=== PATIENT | female | born 2005 | race Caucasian/White ===

== ENCOUNTER 2024-03-29 13:12 | Outpatient (REF) | payer OTHER, SELFPAY ==
[2024-03-29 14:43] LABS: MANUAL DIFF FLAG NO
[2024-03-29 14:51] LABS: Basophils Absolute Auto 0.1 X10*3/uL (0.0-0.2); Basophils Percent Auto 1.1 % (0-2); Eosinophils Absolute Auto 0.1 X10*3/uL (0.0-0.4); Eosinophils Percent Auto 1.6 % (0-4); Hematocrit 38.9 % (37.0-47.0); Lymphocytes Absolute Auto 2.6 X10*3/uL (1.2-4.9); Lymphocytes Percent Auto 46.8 % (20-40); Mean Corpuscular HGB Conc 33.4 g/dl (31.0-35.0); Mean Corpuscular Hemoglobin 31.4 pg (27.0-33.0); Mean Platelet Volume 9.7 fL (9.4-12.3); Monocytes Absolute Auto 0.5 X10*3/uL (0.1-1.2); Monocytes Percent Auto 8.8 % (2-11); Neutrophils Absolute Auto 2.3 x10*3/uL (2.0-8.3); Neutrophils Percent Auto 41.7 % (45-73); Platelet Count 253 X10*3/uL (160-400); Red Blood Count 4.14 X10*6/uL (4.20-5.50); Red Cell Distribution Width 12.2 % (11.0-16.0); White Blood Count 5.5 X10*3/uL (4.8-10.8)
[2024-03-29 15:23] LABS: TSH reflex Free T4 0.67 uIU/mL (0.32-4.0)
[2024-03-30 22:29] LABS: Gliadin Deamidated IgA Ab <1.0 U/mL; Gliadin Deamidated IgG Ab <1.0 U/mL; Immunoglobulin A 209 mg/dL (47-310); Transglutaminase Ab IgG <1.0 U/mL; Transglutaminase IgA <1.0 U/mL
== END 2024-03-29 13:13 | disposition home or self-care (01) ==
LOC: HO.CHCLDS 13:12
PROVIDERS: Visit Provider General Practice
DX: R19.7 Diarrhea, unspecified (principal); Z87.59 Personal history of other complications of pregnancy, childbirth and the puerperium
CPT/HCPCS: 36415; 82784; 84443; 85025; 86258; 86364

== ENCOUNTER 2024-06-01 14:22 | Outpatient (REF) | payer OTHER, SELFPAY ==
[2024-06-02 01:33] LABS: Alanine Aminotransferase 15 U/L (0-31); Albumin Level 4.3 g/dL (3.5-5.0); Alkaline Phosphatase 59 U/L (39-117); Anion Gap 13 (12-20); Aspartate Amino Transferase 17 U/L (5-31); Bilirubin Direct 0.2 mg/dL (0.0-0.5); Bilirubin Total 0.4 mg/dL (0.0-1.0); Blood Urea Nitrogen 9 mg/dL (9-16); Calcium 9.5 mg/dL (8.4-10.2); Carbon Dioxide 24 mmol/L (22-29); Chloride 105 mmol/L (96-108); Estimated Glomerular Filt Rate > 60; Glucose Random 95 mg/dL (60-115); Potassium 3.9 mmol/L (3.3-5.1); Sodium 138 mmol/L (135-145); Total Protein 7.1 g/dL (6.5-8.0)
[2024-06-02 01:56] LABS: TSH reflex Free T4 0.62 uIU/mL (0.32-4.0)
== END 2024-06-01 14:23 | disposition home or self-care (01) ==
LOC: HO.HHCL 14:22
PROVIDERS: Visit Provider Family Medicine
DX: R14.0 Abdominal distension (gaseous) (principal); R10.9 Unspecified abdominal pain; R82.79 Other abnormal findings on microbiological examination of urine
CPT/HCPCS: 36415; 80048; 80076; 84443; 87086; 87088

== ENCOUNTER 2025-01-03 14:16 | Outpatient (REF) | payer OTHER, SELFPAY ==
--- NOTE | ~2025-01-03 | XR_ITS ---
EXAMINATION: XR ABDOMEN KUB CLINICAL INDICATION: sense of constipation, few BM weekly COMPARISON: None available. TECHNIQUE: AP view of the abdomen. FINDINGS: Gas throughout the intestine. No intestinal dilatation. Stool within the right hemicolon and likely transverse colon. No air-fluid levels. Osseous structures are intact. No metallic or radiopaque foreign body. No calcifications in the kidney shadows for the bladder region. XR/XR KUB IMPRESSION: No intestinal obstruction pattern. Electronically signed by: Pollo Brewer MD 01/03/2025 02:41 PM EST RP
--- OUTSIDE RECORDS SUMMARY | 2025-01-03 15:26 | XMS_ITS | Encounter Summary ---
Author Organization [facility] Address [address] [place] [address] Phone Care Team Providers Care Haulage Boss Name Role Phone Gladis Jones MD Primary Care Provider Encounter Details Date Type Department Care Team (Late st Contact Info) Description 06/30/2017 Conversion Encounter [facility] [address] [place] [address] Social History Tobacco Use Types Packs/Day Years Used Date Smoking Tobacco: Never Assessed Comments Unknown Sex and Gender Information Value Date Recorded Sex Assigned at Female 11/29/2019 10:25 AM EST Legal Sex Female 5:25 PM EDT Gender Identity Female 11/29/2019 10:25 AM EST Sexual Orientation Straight 11/29/2019 10 :25 AM EST documented as of this encounter Plan of Treatment Not on file documented as of this encounter Visit Diagnoses Not on filedocumented in this encounter Care Teams Haulage Boss Relationship Specialty Start Date End Date Gladis Jones MD [address] [place] [address] PCP - General Pediatrics 05/14/18 03/14/24 documented as of this encounter
--- OUTSIDE RECORDS SUMMARY | 2025-01-03 15:26 | XMS_ITS | Encounter Summary ---
Author Organization [facility] Address [address] [place] [address] Phone Care Team Providers Care Condenser Setter Name Role Phone Gladis Jones MD Primary Care Provider [phone] Encounter Details Date Type Department Care Team (Late st Contact Info) Description 02/11/[address] [facility] [place] Family Medicine [address] [place], [place] [phone] Family Medicine, Physician [address] [place] [address] Social History Tobacco Use Types Packs/Day Years [...] on filedocumented in this encounter Care Teams Condenser Setter Relationship Specialty Start Date End Date Gladis Jones MD [address] [place] [address] PCP - General Pediatrics 05/14/18 03/14/24 documented as of this encounter
--- OUTSIDE RECORDS SUMMARY | 2025-01-03 15:26 | XMS_ITS | Encounter Summary ---
Author Organization [facility] Address [address] [place] [address] Phone Care Team Providers Care Repairer Welding Systems And Equipment Name Role Phone Gladis Jones MD Primary Care Provider [phone] Reason for Visit * Reason Comments Med Refill Encounter Details Date Type Department Care Team (Late st Contact Info) Description 08/03/2020 Refill [facility] [place] [address] [place] [address] Gladis Jones MD [address] [place] [address] Encounter for initial prescription of contraceptive pills Social History Tobacco Use Types Packs/Day Years Used Date Smoking Tobacco: Never Smokeless Tobacco: Never Comments:vaped once Alcohol Use Standard Drinks/Week Comments Never 0 (1 standard drink = 0.6 oz pur e alcohol) Hunger/Food Answer Date Recorded No 12/02/2018 Stable Housing Answer Date Recorded No 11/17/2019 Transportation Concerns Answer Date Rec orded No 12/02/2018 Hazards in Home Answer Date Recorded No 12/02/2018 Financing Utilities Answer Date Recorde d No 12/02/2018 Safety at Home Answer Date Recorded No 12/02/2018 Outside Support Answer Date Recorded No 12/02/2018 Understanding Health Concerns Answer Da te Recorded No 12/02/2018 Financing Health Concerns Answer Date R ecorded No 12/02/2018 Missing School or Work Answer Date Shen rded No 12/02/2018 Comments No Sex and Gender Information Value Date Recorded Sex Assigned at Female 11/29/2019 10:25 AM EST Legal Sex Female 5:25 PM EDT Gender Identity Female 11/29/2019 10:25 AM EST Sexual Orientation Straight 11/29/2019 10 :25 AM EST documented as of this encounter Miscellaneous Notes * Telephone Encounter - Susana Beavers LPN - 09/03/2020 11:19 AM EDT Spoke to pharmacist Peggy- She is going to give the patient the same RX that was ordered in May.She is faxing the orders back to [facility] so MD can see the different in the medications. She doesn't need a new script * Telephone Encounter - Gladis Jones MD - 09/03/2020 11:08 AM EDT Discussed with Susana. As long as hormone is the same, it doesn't matter if the last week is nothing or Fe (unless family cares), but of note, Rx from my end was the same. Do I need to sign another Rx or are we all good? * Telephone Encounter - Susana Beavers LPN - 09/03/2020 9:08 AM EDT I called the pharmacist at [facility] She states what was sent over in May is not the same drug that was sent over the other day. In May patient was getting 28 pack. The ocp's sent over the other day were 21 day pack per pharmacist (Epic states 28 day pack). The pharmacist states the placebo pills are not included with this pack. I did confirm Norethindrone-ethinyl estradiol 1-20 Mg-MCG per tablet * Telephone Encounter - Gladis Jones MD - 09/02/2020 4:08 PM EDT I am confused by the question. The Rx written should be right- norethindrone- ethinyl estradiol 1-20MG-MCG per tablet Can you clarify what they are asking? This was prescribed by Dr. Romero yesterday. Thanks. * Telephone Encounter - Susana Beavers LPN - 09/02/2020 12:54 PM EDT [facility] is asking if Araceli ocp's need to have iron in them. Are they the same ones in May. The Pharmacist is asking. Please advise * Telephone Encounter - Gladis Jones MD - 08/08/2020 10:19 AM EDT I will write another Rx once she has f/u arranged, so please let me know. * Telephone Encounter - Susana Beavers LPN - 08/08/2020 9:27 AM EDT Spoke to parent to make VV appt Araceli needs to call [facility] back to set up her portal. Mom will have her call [facility] back. Per [facility] last refill was given to her on 08/03/2020. So she will need another refill in 30days. Your notes states tisha around 09/09/2020. * Telephone Encounter - Gladis Jones MD - 08/04/2020 12:32 PM EDT She should have had two refills, so should not need a new Rx for another month. She needs OCP f/u in a month (was to have it three months after initial OCP Rx), please call to have it scheduled and see if she needs a new Rx prior to that appt and let me know. Thanks. * Telephone Encounter - Susana Beavers LPN - 08/04/2020 12:06 PM EDT Pharm request for ocp's. Last pe 11/2019 last office visit 05/2020 documented in this encounter Plan of Treatment Not on file documented as of this encounter Visit Diagnoses Diagnosis Encounter for initial prescription of contraceptive pills documented in this encounter Care Teams Repairer Welding Systems And Equipment Relationship Specialty Start Date End Date Gladis Jones MD [address] [place] [address] PCP - General Pediatrics 05/14/18 03/14/24 documented as of this encounter
--- OUTSIDE RECORDS SUMMARY | 2025-01-03 15:26 | XMS_ITS | Encounter Summary ---
Author Organization [facility] Address [address] [place] [address] Phone Care Team Providers Care Bulb Weeder Name Role Phone Gladis Jones MD Primary Care Provider [phone] Encounter Details Date Type Department Care Team (Late st Contact Info) Description 12/31/2011 Documentation [facility] [place] Family Medicine [address] [place], [place] [phone] Family Medicine, Physician [address] [place] [address] Social History Tobacco Use Types Packs/Day Years [...] on filedocumented in this encounter Care Teams Bulb Weeder Relationship Specialty Start Date End Date Gladis Jones MD [address] [place] [address] PCP - General Pediatrics 05/14/18 03/14/24 documented as of this encounter
--- OUTSIDE RECORDS SUMMARY | 2025-01-03 15:26 | XMS_ITS | Encounter Summary ---
Author Organization [facility] Address [address] [place] [address] Phone Care Team Providers Care Small Equipment Operator Name Role Phone Gladis Jones MD Primary Care Provider [phone] Encounter Details Date Type Department Care Team (Late st Contact Info) Description 07/18/2010 Documentation [facility] [place] Family Medicine [address] [place], [place] [id number] Family Medicine, Physician [address] [place] [address] Social History Tobacco Use Types Packs/Day Years [...] on filedocumented in this encounter Care Teams Small Equipment Operator Relationship Specialty Start Date End Date Gladis Jones MD [address] [place] [address] PCP - General Pediatrics 05/14/18 03/14/24 documented as of this encounter
--- OUTSIDE RECORDS SUMMARY | 2025-01-03 15:26 | XMS_ITS | Encounter Summary ---
Author Organization [facility] Address [address] [place] [address] Phone Care Team Providers Care Ordnance Officer Name Role Phone Gladis Jones MD Primary Care Provider [phone] Encounter Details Date Type Department Care Team (Late st Contact Info) Description 02/16/2010 Documentation [facility] [address] [place], [place] [phone] Family Medicine, Physician [address] [place] [address] Social History Tobacco Use Types Packs/Day Years [...] on filedocumented in this encounter Care Teams Ordnance Officer Relationship Specialty Start Date End Date Gladis Jones MD [address] [place] [address] PCP - General Pediatrics 05/14/18 03/14/24 documented as of this encounter
--- OUTSIDE RECORDS SUMMARY | 2025-01-03 15:27 | XMS_ITS | Encounter Summary ---
Author Organization [employer] Address [address] [facility] [address] [place] [address] Care Team Providers Care Developmental Mathematics Professor Name Role Phone Yolanda Alberts MD Primary Care Provider [phone] Reason for Visit * Reason Comments Pre-visit Planning Unable to complete s creening Encounter Details Date Type Department Care Team ([facility] st Contact Info) Description 12/17/[address] [facility] [address] [place], [place] [phone] Yolanda Alberts MD [address] [place], [place] [phone] Pre-visit Planning (Unable to complete screening) Social History Tobacco Use Types Packs/Day Years Used Date Smoking Tobacco: Never Smokeless Tobacco: Current Comments:vape Alcohol Use Standard Drinks/Week Comments Yes 0 (1 standard drink = 0.6 oz pur e alcohol) Depression Answer Date Recorded Patient Health Questionnaire-9 Score 0 03/26/2024 Patient Health Questionnaire-9 Score 0 03/26/2024 Last PHQ-9: Questionnaire Data Not on file 0 03/26/2024 Housing Stability Answer Date Recorded What is your housing situation today? I have adenike mathew 03/26/[address] you li ve. Do you have problems with any of the following? None of the above 03/26/2024 Food Insecurity Answer Date Recorded Within the past 12 months, y ou worried that your food would run out before you got money to buy more: Never True 03/26/2024 Within the past 12 months,th e food you bought just didn't last and you didn't have enough money to get more: Never True Transportation Answer Date Recorded In the past 12 months, has l ack of transportation kept you from medical appts, meetings, work or from getting things needed for daily living? Yes, it has kept me from medical appointments or getting medications. 03/26/2024 Utilities Answer Date Recorded In the past 12 months, has t he electric, gas, oil or water company threatened to shut off services in your home? No 03/26/2024 Depression Answer Date Recorded Patient Health Questionnaire-2 Score 0 03/26/2024 Comments No Sex and Gender Information Value Date Recorded Sex Assigned at Female 02/13/2024 2:18 PM EDT Legal Sex Female 2:17 PM EDT Gender Identity Female 02/13/2024 2:31 PM EDT Sexual Orientation Choose not to disclose 2023 2:31 PM EDT documented as of this encounter Progress Notes * Sol Haas - 12/17/2024 8:59 AM EST CC Sol placed successful outbound call to patient for pre-visit planning. Patient name and confirmed. Patient confirms appointment date and time,unable to complete screening will complete in office. documented in this encounter Plan of Treatment Not on file documented as of this encounter Visit Diagnoses Not on filedocumented in this encounter Additional Health Concerns Assessment Noted Time PHQ-9 Depression Total Score: 0 03/26/20 24 1:08 PM EDT documented as of this encounter Care Teams Developmental Mathematics Professor Relationship Specialty Start Date End Date Yolanda Alberts MD [address] [place] [address] PCP - General Family Medicine 03/23/24 documented as of this encounter
--- OUTSIDE RECORDS SUMMARY | 2025-01-03 15:27 | XMS_ITS | Encounter Summary ---
Author Organization [facility] Address [address] [place] [address] Phone Care Team Providers Care Rn Ostomy Name Role Phone Gladis Jones MD Primary Care Provider Encounter Details Date Type Department Care Team (Late st Contact Info) Description 09/16/2014 Documentation [facility] [place] Family Medicine [address] [place], [place] [phone] Family Medicine, Physician [address] [place] [address] Social History Tobacco Use Types Packs/Day Years [...] on filedocumented in this encounter Care Teams Rn Ostomy Relationship Specialty Start Date End Date Gladis Jones MD [address] [place] [address] PCP - General Pediatrics 05/14/18 03/14/24 documented as of this encounter
--- OUTSIDE RECORDS SUMMARY | 2025-01-03 15:27 | XMS_ITS | Clinical Summary ---
Author Organization [facility] Address [address] [place] [id number] Phone Care Team Providers Care Return To Vendor Name Role Phone Unavailable Primary Care Provider Unavailabl e Allergies Active Allergy Reactions Criticality Noted Date Comments Amoxicillin Hives Medications SUMAtriptan (Imitrex) 25 MG tabletIndications :Migraine with aura and without status migrainosus, not intractable Take 1 tablet (25 mg total) by mouth once as needed for migraine (May repeat in 2 hours if symptoms persist) for up to 1 dose. May repeat dose once in 2 hours if no relief. Do not exceed 2 doses in 24 hours. 9 tablet 1 05/20/20 Active Additional Information Patient not taking.Reported on 08/31/2022 norethindrone 0.35 MG tabletIndications :Migraine with aura and without status migrainosus, not intractable,Encou nter for initial prescription of contraceptive pills Take 1 tablet (0.35 mg total) by mouth once daily at approximately the same time each day for 28 days. 28 tablet 2 09/08/20 22 Active Active Problems Problem Noted Date Diagnosed Date Lazy eye, left 04/08/2023 Overview (04/08/2023): 04/08/2023 (age 18yr): Symptom of 'wandering' eye could be related to history fo lazy eye. Will refer to ophtho. Assessment & Plan (04/08/2023 5:29 PM EDT): 04/08/2023 (age 18yr): Symptom of 'wandering' eye could be related to history fo lazy eye. Will refer to ophtho. Marijuana use 08/31/2022 Overview (08/31/2022): 09/04- using MJ qhs (mostly edibles) for appetite and migraines, got a medical marijauna card. Assessment & Plan (04/08/2023 5:27 PM EDT): 04/08/2023 (age 18yr): Had medical marijuana card by pt report Assessment & Plan (08/31/2022 9:19 AM EDT): I reviewed risks of MJ use, which she says she is aware of. PC Plus briefly discussed/offered, but she's not interested at this time. Migraine with aura 05/20/2022 Overview (08/31/2022): Estrogen-containing OCP stopped 05/20/22. 09/04- almost daily migraines, though not doing any of the preventative things we discussed. Using MJ nightly (has a medical MJ card). Recommended MigRelief again. Has sumatriptan Rx as well, though caused syncope once when she took two within 30 min. Assessment & Plan (04/08/2023 5:29 PM EDT): 04/08/2023 (age 18yr): ongoing migraine headaches, no change with MigRelief. Also having symptoms of presyncope and wander eye. Pt looks well today and minimal headache. Follow up with PCP, will address eye issue separately and refer to ophtho for this. . Assessment & Plan (08/31/2022 9:17 AM EDT): Almost daily migraines, though not doing any of the preventative things we discussed. Using MJ nightly (has a medical MJ card). Recommended MigRelief again. Has sumatriptan Rx as well, though caused syncope once when she took two within 30 min. Assessment & Plan (05/20/2022 3:23 PM EDT): Recommended MigRelief. Sumatriptan Rx done for abortive therapy. Will stop the combined OCP and start a progestin-only OCP as she wants to stick with OCPs (after suggesting an IUD). Rx done today. F/u 3 months (for migraine f/u, OCP re-check, and also to check weight). Fibrocystic breast changes 01/22/2022 Eating disorder 01/22/2022 Overview (08/31/2022): 02/02- has lost 20+lb since last spring. Per counselor at school, likely has anorexia nervosa, seeing her every other week. Likely related to wrestling. Referred to nutrition and eating d/o clinic, never went. 03/05- [facility] intake, recommended inpatient and she didn't want this. Plan to do a program with Carly Jefferson for an eating plan and feels she can do well with this. 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 Therapist ~11/03-04/04 Nikunj [facility] (school-based), or [email or web address]. Didn't find therapy helpful. Assessment & Plan (08/31/2022 9:15 AM EDT): Weight is up a little (2lb since May), which is good, and it sounds like she was doing really well on the program she was doing with Carly Jefferson. No longer in therapy, didn't find it helpful and not interested in doing this again (I recommended PC Plus given virtual might work well for her schedule, though she isn't interested in this). F/u 3 months with weight and vitals. Given she feels she was doing well with the program she was doing with Carly Jefferson, I am hopeful she will do this again once she is done with school. I also suggested a computer support technician that would be covered by insurance, but she isn't interested in this. Assessment & Plan (03/05/2022 12:46 PM EDT): Weight down a few pounds today, and orthostatics are borderline. Her weight loss now is likely confounded by having the Flu a couple weeks ago. I recommended to call [facility] about outpatient management, but she isn't interested at this time. She plans to see Associate Professor Of Engineering, Carly Jefferson, for an eating plan and feels she can do well with this. Continue with weekly therapy with therapist. F/u 1 month for weight check. Assessment & Plan (01/22/2022 4:40 PM EST): Discussed at length. Vitals reassuring (including nl orthostatic BPs). Labs ordered. Referred to nutrition and eating d/o clinic. F/u 1 month. History of COVID-19 10/21/2021 Overview (01/22/2022): 10/20/21 Bilateral breast cysts 01/09/2021 Overview (01/12/2022): Followed at Breast Clinic in [place], since 05/2020 - first mass right breast approx 11per mom: Had another breast ultrasound ~Nov 2020, very good experience at [facility], found another mass, likely cyst, plan to f/u q6mo x3yrs. Benign fibroadenoma Pt has seen multiple providers at the breast center all after the ultrasounds - Assessment & Plan (01/22/2022 4:01 PM EST): Has appt Tuesday with the breast clinic. Assessment & Plan (01/12/2022 10:28 PM EST): Right sided breast mass today. Does feel like normal, slightly denser breast tissue - 2-3 cm in size Discussed looking into having an identified breast specialist that Araceli could see regularly and when she has new findings on self exam. Referral to breast center done Dysmenorrhea 01/09/2021 Overview (08/31/2022): On OCPs (mom aware), not helping much. Functions fine. Taking Blisovi-Fe (ethinyl estradiol 20mcg + norethindrone) without significant SEs. 06/04- changed to norethindrone due to migraines with aura. Dysmenorrhea continued, but otherwise happy. Assessment & Plan (08/31/2022 9:17 AM EDT): Changed to norethindrone due to migraines with aura. Dysmenorrhea continued, but otherwise happy. Bilateral patellofemoral syndrome 03/09/2018 Overview (01/09/2021): Referred to sports medicine after conservative tx unsuccessful. Diag with bilat patellofemoral syn and core strength insuff. Referred for PT. Dr. Castle will follow up with her. 02/2018 Per patient had MRI. Also had Physical Therapy. Doing better now. 01/04 Assessment & Plan (01/09/2021 2:47 PM EST): Recently went back to Physical Therapy. Assessment & Plan (11/29/2019 10:32 AM EST): Recommended to f/u with Dr. Henderson/Sushila as needed (last seen 03/02) given persistent symptoms. Keratosis pilaris 02/15/2018 Overview (11/29/2019): Worse with sports. On face only. Has tried CeraVe SA, Salex 6% foam, Glytone KP Kit - had a lot pain/stinging with this. Urea 20% prescribed 11/29/19. Assessment & Plan (11/29/2019 11:16 AM EST): Trial of urea 20%. Can f/u with derm clinic if no better. Assessment & Plan (11/27/2018 10:36 AM EST): Recommend trying CeraVe SA again. Allergic rhinitis 08/18/2017 Overview (08/18/2017): Has seen Dr. Cruz/Lye Machine Operator. Has been on flonase and loratadine. Possible food allergies also. Assessment & Plan (11/29/2019 10:32 AM EST): Continue prn meds. Assessment & Plan (04/26/2018 8:59 AM EDT): Use shanika & sheila Family history of disorder of metabolism 015 Overview (08/31/2022): Mom eval. iin [facility] (Dr. 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 Suspect that MGM also has a mitochondrial disorder based on her sx. [place] for Araceli with Dr. Lewis[place] [facility] [place] % risk cannot be estimated and can't predict if Araceli would develop any sx (she has no sx presently). Since she is asymptomatic decision made to follow clinically for now and not test. Consider screening lab eval or genetic testing in the future (patient wants to go in to the and would like to wait to get tested until after this). F/U with genetics clinic prn per mom 12/02. 09/04- awaiting insurance approval for lab work by genetics. Assessment & Plan (08/31/2022 9:18 AM EDT): Awaiting insurance approval for lab work by genetics. Assessment & Plan (05/20/2022 3:28 PM EDT): Liat would now like to be tested. I reached out to Vonda Desouza NP, who is covering today for Dr. Lewis to find out if she wants to see Liat or if this is something I can/should order and she let me know they would like to see Araceli. They will reach out to schedule her, and I placed the referral and let family know. Assessment & Plan (11/29/2019 10:32 AM EST): Won't test her as she doesn't want to be tested given she wants to be in the . Mom's doctor aware of this and guiding possible testing in patient. Does want to be tested eventually. Assessment & Plan (11/27/2018 9:50 AM EST): Will f/u prn Adjustment disorder with anxious mood 02/09/2013 Overview (08/31/2022): Saw Romie Bruno. Sx of anxiety and some anger 2012. Was seeing Romie Bruno. Recent loss of grandfather. Doing well and no longer in therapy 2015. Having mood swings around menses 01/04, plan to switch OCP and did better on new OCP. Therapist- Nikunj, saw her weekly until ~04/04. Assessment & Plan (11/29/2019 10:31 AM EST): Doing well, no concerns. Resolved Problems Problem Noted Date Diagnosed Date Resolved Date ADHD (attention deficit hype ractivity disorder), inattentive type 09/20/2012 01/09/2021 Overview (11/27/2018): Diag with ADHD by [facility]. Trial of adderall xr started 2011 and definitely helps. Core eval showed average abilities and no need for IEP. Has accommodations for ADHD. Continues to do well on adderall xr 10 mg on school days only. No SE. Med checks are now q 6 months. 01/29. Off meds, thinks she's outgrown it. 12/02. Assessment & Plan (11/29/2019 10:26 AM EST): No concerns, off meds. Assessment & Plan (11/27/2018 9:57 AM EST): Doing well off meds. Assessment & Plan (11/11/2017 11:50 AM EST): You are doing well on your adderall xr 10 mg on school days only. You have not had any side effects and we will continue you on this medication and dose. New prescription done today. Immunizations Immunization Administration Dates Next Due COVID-19 Pfizer, bivalent, 12+ years 08/31/2022 COVID-19 Pfizer, nael-sucros e, 12+ years 01/22/2022 DTaP 5 03/01/2008, 6,2004,05/20,2004 HPV Vaccine 9 Valent 11/27/2018,08/18/2017 Hep A, ped/adol 09/23/2015,02/10/2015 Hep B, ped/adol 2004,2004,2004 Hib (HbOC) 05/31/2005 Hib (PRP-T) 2004,2004,2004 IPV 03/01/2008, 4,2004,03/09 Influenza, injectable, MDCK, preservative free, quadrivalent 11/05/2016 Influenza, injectable, quadrivalent 09/23/2015 Influenza, injectable, quadr ivalent, preservative free 08/31/2022,01/22/2022,09/30/2020,11/29,11/27/2018,08/18/2017 Influenza, injectable, trivalent 10/22/2009 Influenza, intranasal, quadrivalent 08/12/2014,1 12/18/2012 Influenza, intranasal, trivalent 09/20/2012,07/15 MMR 03/01/2008,01/13/2005 Meningococcal B Trumenba 01/22/2022 Meningococcal Conj (Menactra) MCV4P 06/09/2020,0 04/07/2016 PPD Test 07/20/2022 Pneumococcal Conjugate 05/31/2005,2003,2004,03/09 Tdap 04/07/2016 Varicella 03/01/2008,01/13/2005 Family History Medical History Relation Name Comments Substance abuse Father of over dose Diabetes Maternal Grandfather Heart disease (Premature) Maternal Grandfather Mitochondrial disorder Maternal Grandmother Mitochondrial disorder Mother Beata Lorenzana Alcoholism Paternal Grandmother Relation Name Status Comments Father Father: Asthma / ? ADHD Maternal Grandfather Materna l grandfather: Seizure disorder, Diabetes mellitus, Hepatitis C Maternal Grandmother Alive Materna l grandmother: Seizure disorder Mother Beata Lorenzana Alive Mother: Hypert hyroidism and IBS Other No family histo ry of *Thrombophilia, Family history of *Sudden /[place] under 55, No family history of Developmental dislocation of hip, Family history of ADD/ADHD, No family history of Obesity, Family history of Asthma, Family history of Migraines, Family history of Deafness, Family history of Strabismus, Family history of *Dental caries, Family history of Seizure disorder, Family history of Hyperlipidemia, No family history of Cancer, Family history of Diabetes mellitus, No family history of *CVA/Stroke, Family history of *Heart Disease Paternal Grandmother Social History Tobacco Use Types Packs/Day Years Used Date Smoking Tobacco: Never Smokeless Tobacco: Never Tobacco Cessation:Counseling Given: Yes Comments:vaped once Alcohol Use Standard Drinks/Week Comments Not Currently 0 (1 standard drink = 0.6 oz pure alcohol) rare, has tried it but doesn't enjoy it. Hunger/Food Answer Date Recorded In the last 12 months, did y ou or your family ever eat less than you felt you should because there wasn't enough money for food? No 01/22/2022 Stable Housing Answer Date Recorded Are you worried that in the next 2 months you may not have stable housing? No 01/22/2022 Transportation Concerns Answer Date Rec orded In the last 12 months, have you or your family ever had to go without healthcare because you didn't have a way to get there? No 01/22/2022 Hazards in Home Answer Date Recorded Think about the place you li ve. Do you have problems with any of the following? Pests (mice or roaches), mold, no/not working smoke detectors, water leaks, no window guards. No 2021 Financing Utilities Answer Date Recorde d In the last 12 months, has t he electric, gas, oil, or water company threatened to shut off your services in your home? No 01/22/2022 Safety at Home Answer Date Recorded Are you or your family worried about feeling saf e in your home? No 01/22/2022 Outside Support Answer Date Recorded Do you feel that you need mo re support from other people or programs to help you care for yourself or your family? No 01/22/2022 Understanding Health Concerns Answer Da te Recorded Do you need help understandi ng your or your child's healthcare needs (diagnosis, medications, plan, etc.)? No 01/22/2022 Financing Health Concerns Answer Date R ecorded In the last 12 months, was t here a time when your child needed to see a doctor or get medications or supplies but could not because of cost? No 01/22/2022 Missing School or Work Answer Date Shen rded Did you or your child miss s chool or work because of a health problem that could have been avoided? No 01/22/2022 Comments No Sex and Gender Information Value Date Recorded Sex Assigned at Female 11/29/2019 10:25 AM EST Legal Sex Female 5:25 PM EDT Gender Identity Female 11/29/2019 10:25 AM EST Sexual Orientation Straight 11/29/2019 10 :25 AM EST Last Filed Vital Signs Vital Sign Reading Time Taken Comments Blood Pressure 101/55 08/31/2022 8:39 AM EDT Pulse 60 08/31/2022 8:39 AM EDT Temperature 36.5 ??C (97.7 ??F) 04/08/2023 4:07 PM ED T Respiratory Rate - - Oxygen Saturation 100% 01/18/2013 12: 00 AM EST Inhaled Oxygen Concentration - - Weight 64.8 kg (142 lb 12.8 oz) 04/08/2023 4:07 PM EDT Height 170.2 cm (5' 7 ) 01/22/2022 3:19 PM EST Body Mass Index 22.37 01/22/2022 3:19 PM EST Plan of Treatment Health Maintenance Due Date Last Done Comments Men B Vaccine (2 of 2 - Trum enba SCDM 2-dose series) 07/25/2022 01/22/2022 Influenza Vaccines (#1) 2024 12/24/19 24, 08/31/2022, 01/22/2022, Additional history exists COVID-19 Vaccine ( - 2023-2 5 season) 2024 12/24/2023, 08/31/2022, 01/22/2022, Additional history exists DTaP,Tdap,and Td Vaccines (7 - Td or Tdap) 04/07/2026 04/07/2016, 03/01/2008, 11/17/2005, Additional history exists Hepatitis B Vaccines Completed 2004, 2004, 2004 HIB Vaccines Completed 05/31/2005, 06/15, 2004, Additional history exists Pneumococcal Vaccine Completed 05/31/2005, 2004, 2004, Additional history exists IPV Vaccines Completed 03/01/2008, 10/14, 2004, Additional history exists MMR Vaccines Completed 03/01/2008, 01/13/2005 Varicella Vaccines Completed 03/01/2008, 01/13/2005 Hepatitis A Vaccines Completed 09/23/2015, 02/11/20 15 HPV Vaccines Completed 11/27/2018, 08/18/2017 Meningococcal Vaccine Completed 06/09/2020, 016 Procedures * Due to [place] [employer] law, this organization might not be sharing sensitive test results. Procedure Name Priority Date/Time Associated Diagnosis Comments CHLAMYDIA AND GONORRHEA, AMPLIFIED Routine 03/05/2022 12:15 PM EDT Screening for chlamydial disease from Last 3 Months or Most Recently Relevant to Health Maintenance Results * Due to [place] [employer] law, this organization might not be sharing sensitive test results. * Chlamydia and Gonorrhoea, Amplified (Urine) (03/05/2022 12:15 PM EDT) Chlamydia Trachomatis, DNA Probe NEGATIVE (NEG) [facility] Comment: No Chlamydia Trachomatis RNA detected in this patient's sample ? (REFERENCE RANGE/NORMAL VALUE: NOT DETECTED) ? Note: This test uses director of workforce development- mediated amplification method to detect rRNA from C. Trachomatis URINE GC AMP PROBE NEGATIVE (NEG) [facility] Comment: No Neisseria Gonorrhoeae RNA detected in this patient's sample ? (REFERENCE RANGE/NORMAL VALUE: NOT DETECTED) ? NOTE: This test uses director of workforce development-mediated amplification method to detect rRNA from N.Gonorrhoeae. A negative result does not preclude infection. In the case of a negative urine result, testing of an endocervical(female) or urethral (male) specimen is recommended if there is high clinical suspicion of infection. Due to very high sensitivity of Nucleic Acid Amplification Test, false positive results may occur. Therefore, specimen handling is extremely important. In patients in whom the disease is unlikely, additional sample for testing should be considered after an initial positive result. The performance characteristics of this test have not been evaluated in children. The Aptima Combo2 assay is not intended for the evaluation of suspected sexual abuse or for other medico-legal indications. The ordering provider should assess if the patient had consensual sex without risk of sexual abuse. Consult the [facility] if needed. Contact phone number . Therapeutic failure or success cannot be determined with the Aptima Combo2 assay since nucleic acid may persist following appropriate antimicrobial therapy. The Centers for Disease Control and Prevention (CDC) recommends confirmatory retesting using culture or a different nucleic acid amplification test when positive results occur, if indicated. Testing performed or reported by [facility], a Service of [facility], [address] [place] [address] Dylan Sharma MD, Phlebotomy Specialist [facility]# [id number] Urine (Urine, Random (not clean void)) 03/05/2022 12:15 PM EDT 03/05/2022 10:14 PM EDT us Gladis Jones MD LAB MICROBIOLOGY - GENERAL OR DERABLES Final Result [facility] from Last 3 Months or Most Recently Relevant to Health Maintenance Insurance [facility] NON PCC [facility]
--- OUTSIDE RECORDS SUMMARY | 2025-01-03 15:27 | XMS_ITS | Encounter Summary ---
Author Organization [facility] Address [address] [place] [address] Phone Care Team Providers Care Personalized Living Manager Nurse Name Role Phone Gladis Jones MD Primary Care Provider [phone] Encounter Details Date Type Department Care Team (Late st Contact Info) Description 02/07/2015 [place] [facility] [place] [address] [place], [place] [id number] Family Medicine, Physician [address] [place] [address] Social History Tobacco Use Types Packs/Day Years [...] on filedocumented in this encounter Care Teams Personalized Living Manager Nurse Relationship Specialty Start Date End Date Gladis Jones MD [address] [place] [address] PCP - General Pediatrics 05/14/18 03/14/24 documented as of this encounter
--- OUTSIDE RECORDS SUMMARY | 2025-01-03 15:27 | XMS_ITS | Encounter Summary ---
Author Organization [employer] Address [address] [place] [address] Care Team Providers Care Hall Porter Name Role Phone Yolanda Alberts MD Primary Care Provider [phone] Encounter Details Date Type Department Care Team (Latest Contact Info) Description 12/28/2024 Travel Social History Tobacco Use Types Packs/Day Years Used Date Smoking Tobacco: Never Passive Smoke Exposure: Never Smokeless Tobacco: Current Comments:vape Alcohol Use Standard Drinks/Week Comments Yes 0 (1 standard drink = 0.6 oz pur e alcohol) Depression Answer Date Recorded Patient Health Questionnaire-9 Score 0 03/26/2024 Patient Health Questionnaire-9 Score 0 03/26/2024 Last PHQ-9: Questionnaire Data Not on file 0 03/26/2024 Housing Stability Answer Date Recorded What is your housing situation today? I have adenike priyanka 03/26/[address] you li [...] PM EDT documented as of this encounter Plan of Treatment Not on file documented as of this encounter Visit Diagnoses Not on filedocumented in this encounter Additional Health Concerns Assessment Noted Time PHQ-9 Depression Total Score: 0 03/26/20 1:08 PM EDT documented as of this encounter Care Teams Hall Porter Relationship Specialty Start Date End Date Yolanda Alberts MD [address] [place] [address] PCP - General Family Medicine 03/23/24 documented as of this encounter
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
--- OUTSIDE RECORDS SUMMARY | 2025-01-03 15:27 | XMS_ITS | Clinical Summary ---
Author Organization [email or web address] Address [address] [facility] 7t [place] [address] Care Team Providers Care Reproduction Order Processor Name Role Phone Yolanda Alberts MD Primary Care Provider [phone] Allergies Active Allergy Reactions Criticality Noted Date Comments Amoxicillin Hives 03/26/2024 Medications * This document contains information received from the source organization and may not represent a complete record from that organization. dicyclomine (Bentyl) 10 MG capsule Take 1 capsule (10 mg) by mouth 4 times daily. 120 capsule 2 04/05/20 24 025 Active simethicone (Mylicon) 80 MG tablet Take 1 tablet (80 mg) by mouth if needed in the morning, at noon, in the evening, and at bedtime (bloating). 120 tablet 2 06/01/20 24 Active Sennosides (Senna) 8.6 MG capsuleIndicati ons:Bloating,Ab dominal pain, unspecified abdominal location Take 1-2 tabs po at bedtime prn consitpation 60 capsule 3 06/01/20 24 Active fluticasone (Flonase) 50 MCG/ACT nasal spray Administer 1-2 sprays into each nostril Once per day. Shake gently. Before first use, prime pump. After use, clean tip and replace cap. 16 g 2 08/09/20 24 025 Active senna (Senokot) 8.6 MG tablet TAKE 1 TO 2 TABLETS BY MOUTH AT BEDTIME NEEDED FOR CONSTIPATION 07/17/20 24 025 Discontin ued(Thera py completed ) Gas Relief 80 MG chewable tablet Take 1 tablet (80 mg) by mouth if needed in the morning, at noon, in the evening, and at bedtime (bloating). 07/17/20 025 Discontin ued(Thera py completed ) Active Problems Problem Noted Date Diagnosed Date Left lower quadrant abdominal pain 06/01/2024 Abdominal pain 06/01/2024 Assessment & Plan (06/01/2024 2:46 PM EDT): LLQ abdominal pain with significant bloating since miscarriage 4 months ago. Celiac labs negative. Had some response with bentyl. Will trial simethicone with prn senna for constipation. Differential includes IBS vs other. Will check TSH and baseline labs given weight gain, A1c and BS normal in office. Discussed autonomic nervous system and somatic therapists. Discussed glutamine for bloating, understands not FDA approved but some impermeant in preliminary trials. Info given to mom with pt permission for SHELBIE Mckeon, dialectician who specializes in eating disorders. 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 iin [facility] (Dr. 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 Suspect that MGM also has a mitochondrial disorder based on her sx. Consult for Kamronbri with Dr. Lewis/ [place] [facility] [place] % risk cannot be estimated [...] with genetics clinic prn per mom 12/02. Assessment & Plan (03/28/2024 8:38 AM EDT): Potentially related to migraines Will obtain further history from mom Miscarriage within last 12 months 03/28/2024 Assessment & Plan (03/28/2024 8:39 AM EDT): Followed HCG to 17, no further follow-up needed Has not had return of full menses, to let me know if this does not happen within 3 months of completion of miscarriage Lazy eye, left 04/08/2023 Overview (03/23/2024): 04/08/2023 (age 18yr): Symptom of 'wandering' eye could be related to history fo lazy eye. Will refer to ophtho. Last Assessment & Plan: 04/08/2023 (age 18yr): Symptom of 'wandering' eye could be related to history fo lazy eye. Will refer to ophtho. Marijuana use 08/31/2022 Overview (03/28/2024): was using MJ at bedtime for appetite, back pain and migraines Has a medical [employer] card Assessment & Plan (03/28/2024 8:44 AM EDT): Having shaking, eyes rolling back, jittery symptoms with marijuana use after miscarriage Marijuana does not decrease seizure threshold and if anything should be protective against seizures Unsure what to attribute these symptoms around smoking Migraine with aura 05/20/2022 Overview (07/17/2024): Since age 15 Assessment & Plan (07/17/2024 11:26 AM EDT): Current daily headaches, though not particularly strong Not on preventative or abortive therapy Continue to taper from caffeine and nicotine, this may also be contributing to her headaches Eating disorder 01/22/2022 Overview (03/23/2024): 3/22- has lost 20+lb since last spring. 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 Therapist ~11/03-04/04 Nikunj Cotto [facility] (school-based), or [email or web address]. Didn't find therapy helpful. Last Assessment & Plan: Weight is up a little (2lb since [...] done with school. I also suggested a port crane operator that would be covered by insurance, but she isn't interested in this. Fibrocystic breast changes 01/22/2022 Bilateral breast cysts 01/09/2021 Overview (03/28/2024): Followed at [facility] in [place], since 05/2020 - first mass right breast approx 11per mom: Had another breast ultrasound ~Nov 2020, very good experience at [facility], found another mass, likely cyst, plan to f/u q6mo x3yrs. Benign fibroadenoma Pt has seen multiple providers at the breast center all after the ultrasounds Assessment & Plan (03/28/2024 8:37 AM EDT): Follow clinically for now, does not want another ultrasound Dysmenorrhea 01/09/2021 Overview (01/02/2025): Since early teenager Trialed Blisovi-Fe (ethinyl estradiol 20mcg + norethindrone) without significant SE, did not control symptoms 06/04- changed to norethindrone due to migraines with aura. Dysmenorrhea continued Assessment & Plan (01/02/2025 12:27 PM EST): This has been a long standing issue, also coupled with abdominal complaints of lower extremity peripheral neuropathy Will evaluate with lab w/u and pelvic US Bilateral patellofemoral syndrome 03/09/2018 Overview (03/23/2024): Referred to sports medicine after conservative tx unsuccessful. Diag with bilat patellofemoral syn and core strength insuff. Referred for PT. Dr. Castle will follow up with her. 02/2018 Per patient had MRI. Also had Physical Therapy. Doing better now. 01/04 Last Assessment & Plan: Recently went back to Physical Therapy. Allergic rhinitis 08/18/2017 Overview (03/23/2024): Has seen Dr. Cruz/Cistern Room Operator. Has been on flonase and loratadine. Possible food allergies also. Last Assessment & Plan: Continue prn meds. Assessment & Plan (08/09/2024 4:48 PM EDT): Continue loratadine. Add fluticasone nasal. Family history of disorder of metabolism 015 Adjustment disorder with anxious mood 02/09/2013 Assessment & Plan (04/02/2024 9:11 AM EDT): PLAN: (check all that apply) Behavioral Health Integration Plan External OP therapy referral Patient Self Plan Patient to utilize skills provided in intervention , Patient to reach out to [facility] team as needed, and Patient to engage in OP therapy Assessment & Plan (03/28/2024 8:36 AM EDT): consulted today for connection to OP therapy services Encounters Date Type Department Care Team Description 12/28/2024 4:00 PM EST Office Visit [facility] [address] [place] [id number] Yolanda Alberts MD Chronic idiopathic constipation (Primary Dx); Dysmenorrhea; Dietary counseling; Exercise counseling; Overweight; 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[facility]/HCC) 12/28/2024 Travel 12/17/2024 Patient Outreach [facility] [address] [place] [address] Yolanda Alberts MD Pre-visit Planning (Unable to complete screening) 11/27/2024 Telephone [facility] [address] [place] [address] Priscila Watt [place] recall from Last 3 Months Immunizations Name Administration Dates Next Due DTaP, 5 pertussis antigens 03/01/2008,,2004,05/20,2004 HPV 9-Valent 11/27/2018,08/18/2017 Hep A, ped/adol, 2 dose 09/23/2015,02/10/2015 Hep B, Adolescent or Pediatric 2004,2003,2004 Hib (HbOC) 05/31/2005 Hib (PRP-T) 2004,2004,2004 IPV 03/01/2008, 4,2004,03/09 Influenza Injectable Quadriv alant Preservative Free IIV4 MDCK 11/05/2016 Influenza injectable quadriv alent IIV4 with preservative 09/23/2015 Influenza injectable quadriv alent preservative free 08/31/2022,01/22/2022,09/30/2020,11/29,11/27/2018,08/18/2017 Influenza live intranasal qu adrivalent LIAV4 08/12/2014,10/17/2013 Influenza, IIV3, injectable 10/22/2009 Influenza, live, intranasal 09/20/2012, 1 MMR 03/01/2008,01/13/2005 Meningococcal B, Recombinant 01/22/2022 Meningococcal MCV4P ACYW-135 06/09/2020,04/07/20 16 PPD Test 07/20/2022 Pneumococcal Conjugate PCV 7 05/31/2005, 2004,2004,03/09 Tdap 04/07/2016 Varicella 03/01/2008,01/13/2005 Family History Medical History Relation Name Comments Mitochondrial disorder Father Relation Name Status Comments Father Alive Social History Tobacco Use Types Packs/Day Years [...] is your housing situation today? I have adenikemell mathew 03/26/[address] you [...] not to disclose 2023 2:31 PM EDT Last Filed Vital Signs Vital Sign Reading Time Taken Comments Blood Pressure 132/79 12/28/2024 4:16 PM EST Pulse 73 12/28/2024 4:16 PM EST Temperature 35.9 ??C (96.6 ??F) 12/28/2024 4:16 PM ES T Respiratory Rate 18 12/28/2024 4:16 PM EST Oxygen Saturation 97% 08/09/2024 11: 45 AM EDT Inhaled Oxygen Concentration - - Weight 87.9 kg (193 lb 12.8 oz) 12/28/2024 4:16 PM EST Height 170.2 cm (5' 7 ) 12/28/2024 4:16 PM EST Body Mass Index 30.35 12/28/2024 4:16 PM EST Plan of Treatment Health Maintenance Due Date Last Done Comments Chlamydia and Gonorrhea Screening 2004 HIV Screening 2004 Lipid Panel 2004 Hepatitis C Screening 2022 COVID-19 Vaccine ( season) 2024 08/31/2022, 01/22/2022 Influenza Vaccine (#1) 2024 , 01/22/2022, 09/30/2020, Additional history exists Alcohol/Substance Use Screening 03/26/2025 03/26/2024 Depression Screening 03/26/2025 03/26/2024, 03/26/20 24 SDOH Screening 03/26/2025 03/26/2024 Tobacco Screening 12/28/2025 12/28/2024 Family Planning (PISQ) 01/02/2026 01/02/2025 DTaP/Tdap/Td Vaccines (7 - Td or Tdap) 04/07/2026 04/07/2016, 03/01/2008, 11/17/2005, Additional history exists Zoster Vaccines (1 of 2) 2054 RSV Patients and Patients Aged 60 years or older (1 - 1-dose 75+ series) 2079 Hepatitis B Vaccines Completed 2004, 2004, 2004 HIB Vaccines Completed 05/31/2005, 06/15, 2004, Additional history exists Pneumococcal Vaccine: Pediatrics (0 to 5 Years) and At-Risk Patients (6 to 49) Years) Aged Out 05/31/2005, 2004, 2004, Additional history exists No longer eligible based on patient's age to complete this topic IPV Vaccines Completed 03/01/2008, 10/14, 2004, Additional history exists Hepatitis A Vaccines Completed 09/23/2015, 02/11/20 15 HPV Vaccines Completed 11/27/2018, 08/18/2017 Meningococcal Vaccine Completed 06/09/2020, 016 RSV under 20 months Aged Out No longe r eligible based on patient's age to complete this topic Rotavirus Vaccines Aged Out No longer eligible based on patient's age to complete this topic Procedures Procedure Name Priority Date/Time Associated Diagnosis Comments XR KUB AND UPRIGHT 2 VIEWS Routine 01/03/2025 2:17 PM EST Chronic idiopathic constipation from Last 3 Months Results * XR KUB and Upright 2 Views (01/03/2025 2:17 PM EST) Anatomical Region Laterality Modality Radiographic Babita ging 01/03/2025 2:17 PM EST Narrative 01/03/2025 2:45 PM EST ?[facility] ?[address] ?[place] [address] ?XRay Report ? Signed ? Patient: Brayden,Araceli ?MR#: [id number] ?? 08 ? : 2005 ?Acct:[id number] ? Age/Sex: 19 / F ?ADM Date: 02/20/25 ? Loc: HO.HHCX ? Attending Dr: Yolanda Alberts MD ? Ordering Physician: Yolanda Alberts ?? Date of Service: 01/03/25 ?? Procedure(s): XR KUB ?? Accession Number(s): [id number] ? cc: Yolanda Alberts ? EXAMINATION: ?? [...] DD/ 1417 ? TD/TT: 01/03/25 1430 ? Ward Maid: ? Procedure Note Dondaynaruiasterter, Image - 01/03/2025 [place] [address] XRay Report Signed Patient: Chay Owen#: [id number] [birth year] : 2005Acct:[id number] Age/Sex: Date: [birth year]25 Loc: HO.HHCX Attending Dr: Yolanda Alberts MD Ordering Physician: Yolanda Alberts Date of Service: 01/03/25 Procedure(s): XR KUB Accession Number(s): [id number] cc: Yolanda Alberts EXAMINATION: XR ABDOMEN KUB [...] 01/03/25 1441 DD/ 1417 TD/TT: 01/03/25 1430 Ward Maid: Yolanda Alberts MD IMG XR PROCEDURES Final Result from Last 3 Months Insurance , [address] [place] [address] Care Teams Reproduction Order Processor Relationship Specialty Start Date End Date Yolanda Alberts MD [address] [place] [address] PCP - General Family Medicine 03/23/24
== END 2025-01-03 14:17 | disposition home or self-care (01) ==
LOC: HO.HHCX 14:16
PROVIDERS: Visit Provider General Practice
DX: K59.04 Chronic idiopathic constipation (principal)
CPT/HCPCS: 74018

== ENCOUNTER → 2025-01-03 14:17 | Outpatient (BNV) | payer OTHER, SELFPAY | PROVIDERS: Visit Provider Radiology Diagnostic Radiology | DX: K59.00 Constipation, unspecified (principal) | CPT/HCPCS: 74018 ==

== ENCOUNTER 2025-01-03 14:37 | Outpatient (REF) | payer OTHER, SELFPAY ==
--- OUTSIDE RECORDS SUMMARY | 2025-01-03 15:47 | XMS_ITS | Encounter Summary ---
Author Organization [employer] Address [address] [facility] 7 [place] [address] Care Team Providers Care Hotel Office Manager Name Role Phone Yolanda Alberts MD Primary Care Provider [phone] Encounter Details Date Type Department Care Team [...] documented as of this encounter Care Teams Hotel Office Manager Relationship Specialty Start Date End Date Yolanda Alberts MD [address] [place] [address] PCP - General Family Medicine 03/23/24 documented as of this encounter
--- OUTSIDE RECORDS SUMMARY | 2025-01-03 15:47 | XMS_ITS | Clinical Summary ---
Author Organization [employer] Address [address] [facility] 7t [place] [address] Care Team Providers Care Hospital Account Manager Name Role Phone Yolanda Alberts MD Primary Care Provider [phone] Allergies Active Allergy Reactions Criticality Noted Date [...] disease 03/28/2024 Overview (03/28/2024): Mom eval. iin [facility] (Dr. 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 Suspect that MGM also has a mitochondrial disorder based on her sx. Consult for Kamronbri with Dr. 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 Therapist ~11/03-04/04 Nikunj Cotto [facility] (school-based), or [email or web address]. Didn't find therapy helpful. Last Assessment & [...] done with school. I also suggested a dental detail representative that would be covered by insurance, but she isn't interested in this. Fibrocystic breast changes 01/22/2022 Bilateral breast cysts 01/09/2021 Overview (03/28/2024): Followed at [facility] in [place], since 05/2020 - first mass right breast approx 11per mom: Had another breast ultrasound ~Nov 2020, very good experience at [facility], found another mass, likely [...] rhinitis 08/18/2017 Overview (03/23/2024): Has seen Dr. Cruz/Advertising Sales Assistant. Has been on flonase and loratadine. Possible [...] intervention , Patient to reach out to [facility] team as needed, and Patient to engage in OP therapy Assessment & Plan (03/28/2024 8:36 AM EDT): consulted today for connection to OP therapy services Encounters Date Type Department Care Team Description 12/28/2024 4:00 PM EST Office Visit [facility] MEDICINE [address] [place] [phone] Yolanda Alberts MD Chronic idiopathic constipation (Primary Dx); Dysmenorrhea; Dietary counseling; Exercise counseling; Overweight; 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[facility]/HCC) 12/28/2024 Travel 12/17/2024 Patient Outreach [facility] [address] [place] [address] Yolanda Alberts MD Pre-visit Planning (Unable to complete screening) 11/27/2024 Telephone [facility] [address] [place] [address] Priscila Watt [place] recall from Last 3 [...] PM EST Narrative 01/03/2025 2:45 PM EST ?[facility] ?[address] ?[place] [address] ?XRay Report ? Signed ? Patient: Brayden,Araceli ?MR#: [id number] ?? 08 ? : 2005 ?Acct:[id number] ? Age/Sex: 19 / F ?ADM Date: 02/20/25 ? Loc: HO.HHCX ? Attending Dr: Yolanda Alberts MD ? Ordering Physician: Yolanda Alberts ?? Date of Service: 01/03/25 ?? Procedure(s): XR KUB ?? Accession Number(s): [id number] ? cc: Yolanda Alberts ? EXAMINATION: ?? [...] DD/ 1417 ? TD/TT: 01/03/25 1430 ? Site Manager: ? Procedure Note Dondaynaruiasterter, Image - 01/03/2025 [place] [address] XRay Report Signed Patient: Chay Owen#: [id number] 08 : 2005Acct:[id number] Age/Sex: Date: [birth year] Loc: HO.HHCX Attending Dr: Yolanda Alberts MD Ordering Physician: Yolanda Alberts Date of Service: 01/03/25 Procedure(s): XR KUB Accession Number(s): [id number] cc: Yolanda Alberts EXAMINATION: XR ABDOMEN KUB [...] 01/03/25 1441 DD/ 1417 TD/TT: 01/03/25 1430 Site Manager: Yolanda Alberts MD IMG XR PROCEDURES Final Result from Last 3 Months Insurance , [address] [place] [address] Care Teams Hospital Account Manager Relationship Specialty Start Date End Date Yolanda Alberts MD [address] [place] [address] PCP - General Family Medicine 03/23/24
--- OUTSIDE RECORDS SUMMARY | 2025-01-03 15:47 | XMS_ITS | Encounter Summary ---
Author Organization [facility] Address [address] [place] [address] Phone Care Team Providers Care Lay Out Former Name Role Phone Gladis Jones MD Primary Care Provider [phone] Reason for Visit * Reason Comments Med Refill Encounter Details Date Type Department Care Team (Late st Contact Info) Description 08/03/2020 Refill [facility] [address] [place] [address] Gladis Jones MD [address] [place] [address] Encounter for initial prescription of contraceptive pills [...] May.She is faxing the orders back to [facility] so MD can see the different [...] AM EDT I called the pharmacist at [facility] She states what was sent over [...] around 09/09/2020. * Telephone Encounter - Gladis Jonse MD - 08/04/2020 12:32 PM EDT She [...] pills documented in this encounter Care Teams Lay Out Former Relationship Specialty Start Date End Date Gladis Jones MD [address] [place] [phone] PCP - General Pediatrics 05/14/18 03/14/24 documented as of this encounter
--- OUTSIDE RECORDS SUMMARY | 2025-01-03 15:47 | XMS_ITS | Encounter Summary ---
Author Organization [facility] Address [address] [place] [address] Phone Care Team Providers Care Digital Print Operator Name Role Phone Gladis Jones MD Primary Care Provider [phone] Encounter Details Date Type Department Care Team (Late st Contact Info) Description 02/07/2015 Documentation [facility] [place] Family Medicine [address] [place], [place] [id number] Family Medicine, Physician [address] [place] [address] Social History Tobacco Use Types Packs/Day Years [...] on filedocumented in this encounter Care Teams Digital Print Operator Relationship Specialty Start Date End Date Gladis Jones MD [address] [place] [address] PCP - General Pediatrics 05/14/18 03/14/24 documented as of this encounter
--- OUTSIDE RECORDS SUMMARY | 2025-01-03 15:47 | XMS_ITS | Encounter Summary ---
Author Organization [employer] Address [address] [place] [address] Care Team Providers Care Haul Driver Name Role Phone Yolanda Alberts MD Primary Care Provider [phone] Reason for Referral * Imaging (Routine) - Authorized Specialty Diagnoses / Procedures Referred By Contac t Referred To Contact Radiology Diagnoses Dysmenorrhea Procedures US Pelvis Transvaginal Yolanda Alberts MD [address] [place] [address] Phone: tel: fax: [address] Phone: tel: fax: Referral ID Status Reason Start Date Expiration Date V isits Requested Visits Authorized [id number] Authorized 01/02/2025 01/02/2026 1 1 * Imaging (Routine) - Authorized Specialty Diagnoses / Procedures Referred By Contac t Referred To Contact Radiology Diagnoses Dysmenorrhea Procedures Us Pelvis complete Yolanda Alberts MD [address] [place] [address] Phone: tel: fax: [address] Phone: tel: fax: Referral ID Status Reason Start Date Expiration Date V isits Requested Visits Authorized [id number] Authorized 01/02/2025 01/02/2026 1 1 Encounter Details Date Type Department Care Team (Late st Contact Info) Description 12/28/2024 4:00 PM EST Office Visit [facility] MEDICINE [address] [place] [address] Yolanda Alberts MD [address] [place] [address] Chronic idiopathic constipation (Primary Dx); Dysmenorrhea; Dietary [...] 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CMS/HCC) Overview Mom eval. iin [facility] (Dr. 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 Suspect that MGNadeem also has a mitochondrial disorder based on her sx. Consult for Araceli with Dr. Lewis/genetics [place] [facility] [place] - % risk cannot be estimated [...] PM EST Narrative 01/03/2025 2:45 PM EST ?[facility] ?[address] ?[place] [address] ?XRay Report ? Signed ? Patient: Brayden,Caitlen ?MR#: [id number] ?? 08 ? : 2005 ?Acct:[id number] ? Age/Sex: 19 / F ?ADM Date: 01/03/25 ? Loc: HO.HHCX ? Attending Dr: Yolanda Alberts MD ? Ordering Physician: Yolanda Alberts ?? Date of Service: 01/03/25 ?? Procedure(s): XR KUB ?? Accession Number(s): [id number] ? cc: Yolanda Alberts ? EXAMINATION: ?? [...] DD/ 1417 ? TD/TT: 01/03/25 1430 ? Team Otr Truck Driver: ? Procedure Note Erika, Image - 01/03/[address] [address] XRay Report Signed Patient: Chay Owen#: [id number] [birth year] : 2005Acct:[id number] Age/Sex: 19 / FADM Date: 01/03/25 Loc: HO.HHCX Attending Dr: Yolanda Alberts MD Ordering Physician: Yolanda Alberts of Service: 01/03/25 Procedure(s): XR KUB Accession Number(s): [id number] cc: Yolanda Alberts EXAMINATION: XR ABDOMEN KUB [...] 01/03/25 1441 DD/ 1417 TD/TT: 01/03/25 1430 Team Otr Truck Driver: Yolanda Alberts MD IMG XR PROCEDURES Final Result documented in this encounter Visit Diagnoses Diagnosis Chronic idiopathic constipation- Primary Unspecified constipation Dysmenorrhea Dietary counseling Dietary surveillance and counseling Exercise counseling Overweight 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CMS/HCC) documented in this encounter Additional Health Concerns Assessment Noted Time PHQ-9 Depression Total Score: 0 03/26/20 1:08 PM EDT documented as of this encounter Care Teams Haul Driver Relationship Specialty Start Date End Date Yolanda Alberts MD [address] [place] [address] PCP - General Family Medicine 03/23/24 documented as of this encounter
--- OUTSIDE RECORDS SUMMARY | 2025-01-03 15:47 | XMS_ITS | Encounter Summary ---
Author Organization [facility] Address [address] [place] [address] Phone Care Team Providers Care Sexual Assault Social Worker Name Role Phone Gladis Jones MD Primary Care Provider [phone] Encounter Details Date Type Department Care Team (Late st Contact Info) Description 07/18/2010 Documentation [facility] [place] [address] [place], [place] [id number] Family Medicine, Physician [address] [place] [address] Social History Tobacco Use Types Packs/Day Years [...] on filedocumented in this encounter Care Teams Sexual Assault Social Worker Relationship Specialty Start Date End Date Gladis Jones MD [address] [place] [address] PCP - General Pediatrics 05/14/18 03/14/24 documented as of this encounter
--- OUTSIDE RECORDS SUMMARY | 2025-01-03 15:47 | XMS_ITS | Encounter Summary ---
Author Organization [facility] Address [address] [place] [address] Phone Care Team Providers Care Manager Clinical Pharmacy Name Role Phone Gladis Jones MD Primary Care Provider [phone] Encounter Details Date Type Department Care Team (Late st Contact Info) Description 12/31/[address] [facility] [place] [address] [place], [place] [phone] Family Medicine, Physician [address] [place] [address] Social History Tobacco Use Types Packs/Day Years [...] on filedocumented in this encounter Care Teams Manager Clinical Pharmacy Relationship Specialty Start Date End Date Gladis Jones MD [address] [place] [address] PCP - General Pediatrics 05/14/18 03/14/24 documented as of this encounter
--- OUTSIDE RECORDS SUMMARY | 2025-01-03 15:47 | XMS_ITS | Encounter Summary ---
Author Organization [employer] Address [address] [facility] 7t [place] [address] Care Team Providers Care Crewman Main Battle Tank Name Role Phone Yolanda Alberts MD Primary Care Provider [phone] Reason for Visit * Reason Comments Pre-visit Planning Unable to complete s creening Encounter Details Date Type Department Care Team ([facility] st Contact Info) Description 12/17/2024 Patient Outreach [facility] [address] [place], [place] [phone] Yolanda Alberts MD [address] [place], [place] [phone] Pre-visit Planning (Unable to complete screening) Social [...] documented as of this encounter Care Teams Crewman Main Battle Tank Relationship Specialty Start Date End Date Yolanda Alberts MD [address] [place] [address] PCP - General Family Medicine 03/23/24 documented as of this encounter
--- OUTSIDE RECORDS SUMMARY | 2025-01-03 15:47 | XMS_ITS | Encounter Summary ---
Author Organization [facility] Address [address] [place] [address] Phone Care Team Providers Care Inorganic Chemistry Professor Name Role Phone Gladis Jones MD Primary Care Provider [phone] Encounter Details Date Type Department Care Team (Late st Contact Info) Description 06/30/2017 Conversion Encounter [facility] [address] [place] [address] Social History Tobacco Use Types Packs/Day Years [...] on filedocumented in this encounter Care Teams Inorganic Chemistry Professor Relationship Specialty Start Date End Date Gladis Jones MD [address] [place] [address] PCP - General Pediatrics 05/14/18 03/14/24 documented as of this encounter
--- OUTSIDE RECORDS SUMMARY | 2025-01-03 15:47 | XMS_ITS | Encounter Summary ---
Author Organization [facility] Address [address] [place] [address] Phone Care Team Providers Care Manufacturing Process Engineer Name Role Phone Gladis Jones MD Primary Care Provider [phone] Encounter Details Date Type Department Care Team (Late st Contact Info) Description 02/11/2012 Documentation [facility] [place] [address] [place], [place] [phone] Family Medicine, Physician [address] [place] [address] Social History Tobacco Use Types Packs/Day Years [...] on filedocumented in this encounter Care Teams Manufacturing Process Engineer Relationship Specialty Start Date End Date Gladis Jones MD [address] [place] [address] PCP - General Pediatrics 05/14/18 03/14/24 documented as of this encounter
--- OUTSIDE RECORDS SUMMARY | 2025-01-03 15:47 | XMS_ITS | Encounter Summary ---
Author Organization [facility] Address [address] [place] [address] Phone Care Team Providers Care Hydraulic Rubbish Compactor Mechanic Name Role Phone Gladis Jones MD Primary Care Provider Encounter Details Date Type Department Care Team (Late st Contact Info) Description 02/16/2010 Documentation [facility] [address] [place], [place] [phone] Family Medicine, Physician [address] [place] [address] Social History Tobacco Use Types Packs/Day Years [...] on filedocumented in this encounter Care Teams Hydraulic Rubbish Compactor Mechanic Relationship Specialty Start Date End Date Gladis Jones MD [address] [place] [address] PCP - General Pediatrics 05/14/18 03/14/24 documented as of this encounter
--- OUTSIDE RECORDS SUMMARY | 2025-01-03 15:48 | XMS_ITS | Clinical Summary ---
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 Therapist ~11/03-04/04 Nikunj Cotto [facility] (school-based), or [email or web address]. Didn't find therapy helpful. Assessment & Plan [...] done with school. I also suggested a information systems project manager that would be covered by insurance, but she isn't interested in this. Assessment & Plan (03/05/2022 12:46 PM EDT): Weight down a few pounds today, and orthostatics are borderline. Her weight loss now is likely confounded by having the Flu a couple weeks ago. I recommended to call Anjana about outpatient management, but she isn't interested at this time. She plans to see Logistics Vice President, Carly Jefferson, for an eating plan and [...] Overview (01/12/2022): Followed at [facility] in [place], since 05/2020 - first mass right breast approx 11per mom: Had another breast ultrasound ~Nov 2020, very good experience at [facility], found another mass, likely cyst, plan to [...] rhinitis 08/18/2017 Overview (08/18/2017): Has seen Dr. Cruz/Maintenance Truck Driver. Has been on flonase and loratadine. Possible food allergies also. Assessment & Plan (11/29/2019 10:32 AM EST): Continue prn meds. Assessment & Plan (04/26/2018 8:59 AM EDT): Use shanika & sheila Family history of disorder of metabolism 015 Overview (08/31/2022): Mom eval. iin [facility] (Dr. 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 Suspect that MGM also has a mitochondrial disorder based on her sx. Consult for Araceli with Dr. Lewis/ genetics at [facility] [place] 09/28 - % risk [...] 01/09/2021 Overview (11/27/2018): Diag with ADHD by [facility]. Trial of adderall xr started 2011 and [...] Alive Materna l grandmother: Seizure disorder Mother Betaa Lorenzana Alive Mother: Hypert hyroidism and IBS Other No family histo ry of *Thrombophilia, Family history of *Sudden /PA under 55, No family history of Developmental [...] Completed 06/09/2020, 016 Procedures * Due to [employer] law, this organization might not be sharing sensitive test results. Procedure Name Priority Date/Time Associated Diagnosis Comments CHLAMYDIA AND GONORRHEA, AMPLIFIED Routine 03/05/2022 12:15 PM EDT Screening for chlamydial disease from Last 3 Months or Most Recently Relevant to Health Maintenance Results * Due to [employer] law, this organization might not be sharing sensitive test results. * Chlamydia and Gonorrhoea, Amplified (Urine) (03/05/2022 12:15 PM EDT) Chlamydia Trachomatis, DNA Probe NEGATIVE (NEG) [facility] Comment: No Chlamydia Trachomatis RNA detected in this patient's sample ? (REFERENCE RANGE/NORMAL VALUE: NOT DETECTED) ? Note: This test uses back tender cylinder- mediated amplification method to detect rRNA from C. Trachomatis URINE GC AMP PROBE NEGATIVE (NEG) [facility] Comment: No Neisseria Gonorrhoeae RNA detected in this patient's sample ? (REFERENCE RANGE/NORMAL VALUE: NOT DETECTED) ? NOTE: This test uses back tender cylinder-mediated amplification method to detect rRNA from N.Gonorrhoeae. [...] without risk of sexual abuse. Consult the [facility] if needed. Contact phone number . Therapeutic failure or success cannot be determined with the Aptima Combo2 assay since nucleic acid may persist following appropriate antimicrobial therapy. The Centers for Disease Control and Prevention (CDC) recommends confirmatory retesting using culture or a different nucleic acid amplification test when positive results occur, if indicated. Testing performed or reported by [facility], a Service of [facility], [address] [place] [address] Dylan Sharma MD, Automation Qa Analyst [facility]# [id number] Urine (Urine, Random (not clean void)) 03/05/2022 12:15 PM EDT 03/05/2022 10:14 PM EDT us Gladis Jones MD LAB MICROBIOLOGY - GENERAL OR DERABLES Final Result [facility] from Last 3 Months or Most Recently Relevant to Health Maintenance Insurance [facility] NON PCC [facility]
--- OUTSIDE RECORDS SUMMARY | 2025-01-03 15:48 | XMS_ITS | Encounter Summary ---
Author Organization [facility] Address [address] [place] [address] Phone Care Team Providers Care Night Shift Manager Name Role Phone Gladis Jones MD Primary Care Provider [phone] Encounter Details Date Type Department Care Team (Late st Contact Info) Description 09/16/2014 Documentation [facility] [place] Family Medicine [address] [place], [place] [phone] Family Medicine, Physician [address] [place] [address] Social History Tobacco Use Types Packs/Day Years [...] on filedocumented in this encounter Care Teams Night Shift Manager Relationship Specialty Start Date End Date Gladis Jones MD [address] [place] [address] PCP - General Pediatrics 05/14/18 03/14/24 documented as of this encounter
[2025-01-03 16:53] LABS: TSH reflex Free T4 0.65 uIU/mL (0.32-4.0)
[2025-01-04 23:14] LABS: Follicle Stimulating Hormone 3.4 mIU/mL; Lutenizing Hormone 10.1 mIU/mL
== END 2025-01-03 14:38 | disposition home or self-care (01) ==
LOC: HO.HHCL 14:37
PROVIDERS: Visit Provider General Practice
DX: N94.6 Dysmenorrhea, unspecified (principal)
CPT/HCPCS: 36415; 83001; 83002; 84146; 84443

== ENCOUNTER 2025-01-24 13:01 | Outpatient (REF) | payer OTHER, SELFPAY ==
--- NOTE | ~2025-01-24 | US_ITS ---
CLINICAL HISTORY: dysmenorrhea severe, evlauate for structural abnormality, endo? US pelvis transabdominal and transvaginal with color Doppler Comparison: None Findings: Transabdominal scanning performed for overall anatomy. Transvaginal scanning performed for additional detail. LMP: 1 week ago Retroverted uterus, normal size and echotexture, measuring 6.8 x 3.5 x 3.5 cm. Incidental nabothian cysts. Well defined endometrium, measuring 3.0 mm in thickness. Minimal fluid in the endometrial and endocervical canal The right ovary measures, 3.2 x 2.1 x 2.5 cm. Normal sonographic appearance right ovary. Normal color Doppler of the ovary. The left ovary measures, 2.8 x 1.7 x 1.9 cm. Normal sonographic appearance left ovary. Normal color Doppler of the ovary. No adnexal masses or fluid collections. Trace free fluid Impression: 1. Retroverteduterus. 2. Normal thickness endometrium. Minimal fluid in the endometrial and endocervical canal. 3. Normal ovaries/adnexa This document has been electronically signed by: Meek Leigh MD on 01/25/2025 09:53:29
--- OUTSIDE RECORDS SUMMARY | 2025-01-24 16:24 | XMS_ITS | Encounter Summary ---
Author Organization [facility] Address [address] [place] [address] Phone Care Team Providers Care Technical Engineer Name Role Phone Gladis Jones MD Primary Care Provider [phone] Encounter Details Date Type Department Care Team (Late st Contact Info) Description 02/16/2010 Documentation [facility] [place] Medicine [address] [place], [place] [phone] Family Medicine, Physician [address] [place] [address] Social History Tobacco Use Types Packs/Day Years [...] on filedocumented in this encounter Care Teams Technical Engineer Relationship Specialty Start Date End Date Gladis Jones MD [address] [place] [address] PCP - General Pediatrics 05/14/18 03/14/24 documented as of this encounter
--- OUTSIDE RECORDS SUMMARY | 2025-01-24 16:24 | XMS_ITS | Encounter Summary ---
Author Organization [employer] Address [address] [place] [address] Care Team Providers Care Template Fitter Name Role Phone Yolanda Alberts MD Primary Care Provider [phone] Reason for Referral * Imaging (Routine) - Closed Specialty Diagnoses / Procedures Referred By Jaspal meredith Referred To Contact Radiology Diagnoses Dysmenorrhea Procedures US Pelvis Transvaginal Yolanda Alberts MD [address] [place] [address] Phone: tel: fax: [address] Phone: tel: fax: Referral ID Status Reason Start Date Expiration Date Visits Re quested Visits Authorized [id number] Closed 01/02/2025 01/02/2026 1 1 * Imaging (Routine) - Closed Specialty Diagnoses / Procedures Referred By Contrenae t Referred To Contact Radiology Diagnoses Dysmenorrhea Procedures Us Pelvis complete Yolanda Alberts MD [address] [place] [address] Phone: tel: fax: [address] Phone: tel: fax: Referral ID Status Reason Start Date Expiration Date Visits Re quested Visits Authorized [id number] Closed 01/02/2025 01/02/2026 1 1 Encounter Details Date Type Department Care Team (Late st Contact Info) Description 12/28/2024 4:00 PM EST Office Visit [facility] [address] [place] [address] Yolanda Alberts MD [address] [place] [address] Chronic idiopathic constipation (Primary Dx); Dysmenorrhea; Dietary [...] 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CMS/HCC) Overview Mom eval. iin [facility] (Dr. 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 Suspect that MGNadeem also has a mitochondrial disorder based on her sx. Consult for Araceli with Dr. Lewis/genetics at [facility] [place] 09/28 - % risk cannot be estimated [...] evaluate with lab w/u and pelvic US * Result Encounter Note - Yolanda Alberts MD - 12/28/2024 4:00 PM EST Please let patient know KUB showed stool backed into transverse colon. Recommend Miralax cleanout, I can send her a handout on how to do this. Please let me know if she wants me to do this. Hormonal labs are all normal. documented in this encounter Plan of Treatment Scheduled Orders Name Type Priority Associated Diagnoses Orde r Schedule Us Pelvis complete Imaging Routine Dysmenorrhea Expected: 01/02/2025, Expires: 01/02/2026 US Pelvis Transvaginal Imaging Routine Dysmenorrhea Expected: 01/02/2025, Expires: 01/02/2026 documented as of this encounter Procedures Procedure Name Priority Date/Time Associated Diagnosis Comments PROLACTIN, DILUTION STUDY Routine 01/03/2025 2:39 PM EST Dysmenorrhea TSH W/REFLEX TO FT4 Routine 01/03/2025 2:39 PM EST Dysmenorrhea LH Routine 01/03/2025 2:39 PM EST Dysmenorrhea FSH Routine 01/03/2025 2:39 PM EST Dysmenorrhea XR KUB AND UPRIGHT 2 VIEWS Routine 01/03/2025 2:17 PM EST Chronic idiopathic constipation documented in this encounter Results * Prolactin, Dilution Study (01/03/2025 2:39 PM EST) Prolactin, Undiluted 8.0 ng/mL [facility] Comment:Verified by repeat a nalysis. Prolactin, Diluted SEE NOTE ng/mL [facility] Comment:Result confirmed by 1:100 dilution. No high dosehook effect detected. Reference Range Females Non- 3.0-30.0 10.0-209.0 Postmenopausal 2.0-20.0Prolactin dilution studies are done to determine ifthere is a high-dose hook effect (i.e. a non-linearassay response due to a very high concentration ofProlactin). This is reported to occur at Prolactinconcentrations at or above 30,000 ng/mL.This test is not recommended for identifyingmacroprolactin. The [facility], Prolactin, Total and Monomeric is therecommended test (Order code [id number]).THIS TEST WAS PERFORMED AT:[facility] [address] [id number] HYLTON MD Blood Venous blood specimen / Unknown 01/03/2025 2:39 PM EST 01/03/2025 4:13 PM EST us Yolanda Alberts MD LAB BLOOD ORDERABLES Final Res ult [facility] [address] [place] [address] [phone] * LH (01/03/2025 2:39 PM EST) Lutenizing Hormone 10.1 mIU/mL [facility] Comment:Reference Range Foll icular Phase 1.9-12.5 Mid-Cycle Peak 8.7-76.3 Luteal Phase 0.5-16.9 Postmenopausal 10.0-54.7THIS TEST WAS PERFORMED AT:[facility] [address] [id number] HYLTON MD Blood Venous blood specimen / Unknown 01/03/2025 2:39 PM EST 01/03/2025 4:13 PM EST Yolanda Alberts MD LAB BLOOD ORDERABLES Final Res ult Performing Organization Address [facility] de Phone Number [facility] [address] [place] [phone] * FSH (01/03/2025 2:39 PM EST) Follicle Stimulating Hormone 3.4 mIU/mL [facility] Comment:Reference Range Foll icular Phase 2.5-10.2 Mid-cycle Peak 3.1-17.7 Luteal Phase 1.5- 9.1 Postmenopausal 23.0-116.3THIS TEST WAS PERFORMED AT:[facility] [employer] [address] [id number] HYLTON MD Blood Venous blood specimen / Unknown 01/03/2025 2:39 PM EST 01/03/2025 4:13 PM EST Yolanda Alberts MD LAB BLOOD ORDERABLES Final Res ult Performing Organization Address [facility] de Phone Number [facility] [address] [place] [phone] * TSH W/Reflex to FT4 (01/03/2025 2:39 PM EST) TSH reflex Free T4 0.65 0.32 - 4.0 uIU/mL [facility] Blood Venous blood specimen / Unknown 01/03/2025 2:39 PM EST 01/03/2025 4:13 PM EST Yolanda Alberts MD LAB BLOOD ORDERABLES Final Res ult Performing Organization Address [facility]/State/ZIP Co de Phone Number [facility] [address] [place] [phone] * XR KUB and Upright 2 Views (01/03/2025 2:17 PM EST) Anatomical Region Laterality Modality Radiographic Babita ging 01/03/2025 2:17 PM EST Narrative 01/03/2025 2:45 PM EST ?[facility] ?[address] ?[place] [address] ?XRay Report ? Signed ? Patient: Araceli Owen ?MR#: [id number] ?? 08 ? : 2005 ?Acct:[id number] ? Age/Sex: 19 / F ?ADM Date: 01/03/25 ? Loc: HO.HHCX ? Attending Dr: Yolanda Alberts MD ? Ordering Physician: Yolanda Alberts ?? Date of Service: 01/03/25 ?? Procedure(s): XR KUB ?? Accession Number(s): [id number] ? cc: Yolanda Alberts ? EXAMINATION: ?? [...] DD/ 1417 ? TD/TT: 01/03/25 1430 ? Escrow Manager: ? Procedure Note Zonia James - 01/03/[address] [place] [address] XRay Report Signed Patient: Debbie OwennMR#: [id number] [birth year] : 2005Acct:[id number] Age/Sex: 19 / FADM Date: 01/03/25 Loc: HO.HHCX Attending Dr: Yolanda Alberts MD Ordering Physician: Yolanda Alberts Date of Service: 01/03/25 Procedure(s): XR KUB Accession Number(s): [id number] cc: Yolanda Alberts EXAMINATION: XR ABDOMEN KUB [...] 01/03/25 1441 DD/ 1417 TD/TT: 01/03/25 1430 Escrow Manager: Yolanda Alberts MD IMG XR PROCEDURES Final Result documented in this encounter Visit Diagnoses Diagnosis Chronic idiopathic constipation- Primary Unspecified constipation Dysmenorrhea Dietary counseling Dietary surveillance and counseling Exercise counseling Overweight 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
--- OUTSIDE RECORDS SUMMARY | 2025-01-24 16:24 | XMS_ITS | Encounter Summary ---
Author Organization [employer] Address [address] [facility] 7 [place] [address] Care Team Providers Care Change Management Consultant Name Role Phone Yolanda Alberts MD Primary Care Provider [phone] Encounter Details Date Type Department Care Team [...] documented as of this encounter Care Teams Change Management Consultant Relationship Specialty Start Date End Date Yolanda Alberts MD [address] [place] [address] PCP - General Family Medicine 03/23/24 documented as of this encounter
--- OUTSIDE RECORDS SUMMARY | 2025-01-24 16:24 | XMS_ITS | Clinical Summary ---
Author Organization [employer] Address [address] [facility] 7t [place] [address] Care Team Providers Care Comic Book Designer Name Role Phone Yolanda Alberts MD Primary Care Provider [phone] Allergies Active Allergy Reactions Criticality Noted Date [...] disease 03/28/2024 Overview (03/28/2024): Mom eval. iin [facility] (Dr. 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 Suspect that MGM also has a mitochondrial disorder based on her sx. Consult for Kamronbri with Dr. 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 Therapist ~11/03-04/04 Nikunj Cotto [facility] (school-based), or [email or web address] Didn't find therapy helpful. Last Assessment & [...] done with school. I also suggested a aquatics group fitness instructor that would be covered by insurance, but she isn't interested in this. Fibrocystic breast changes 01/22/2022 Bilateral breast cysts 01/09/2021 Overview (03/28/2024): Followed at Breast Clinic in [place], since 05/2020 - first mass right breast approx 11per mom: Had another breast ultrasound ~Nov 2020, very good experience at [facility], found another mass, likely [...] rhinitis 08/18/2017 Overview (03/23/2024): Has seen Dr. Cruz/Alligator Shear Operator. Has been on flonase and loratadine. [...] intervention , Patient to reach out to [facility] team as needed, and Patient to engage in OP therapy Assessment & Plan (03/28/2024 8:36 AM EDT): consulted today for connection to OP therapy services Encounters Date Type Department Care Team Description 01/07/2025 Telephone [facility] [address] [place] [address] Yolanda Alberts MD Results 12/28/2024 4:00 PM EST Office Visit [address] [address] Yolanda Alberts MD Chronic idiopathic constipation (Primary Dx); Dysmenorrhea; Dietary counseling; Exercise counseling; Overweight; 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CMS/HCC) 12/28/2024 Travel 12/17/2024 Patient Outreach [address] [address] Yolanda Alberts MD Pre-visit Planning (Unable to complete screening) 11/27/[address] [address] Priscila Watt MA recall from Last 3 [...] 2024 , 01/22/2022, 09/30/2020, Additional history exists Pap Smear 2025 Alcohol/Substance Use Screening 03/26/2025 03/26/2024 Depression Screening [...] STUDY Routine 01/03/2025 2:39 PM EST Dysmenorrhea LH Routine 01/03/2025 2:39 PM EST Dysmenorrhea FSH Routine 01/03/2025 2:39 PM EST Dysmenorrhea TSH W/REFLEX TO FT4 Routine 01/03/2025 2:39 PM EST Dysmenorrhea XR KUB AND UPRIGHT 2 VIEWS Routine 01/03/2025 2:17 PM EST Chronic idiopathic constipation from Last 3 Months Results * Prolactin, Dilution Study (01/03/2025 2:39 PM EST) Prolactin, Undiluted 8.0 ng/mL [facility] Comment:Verified by repeat a nalysis. Prolactin, Diluted SEE NOTE ng/mL [facility] Comment:Result confirmed by 1:100 dilution. No high dosehook effect detected. Reference Range Females Non- 3.0-30.0 10.0-209.0 Postmenopausal 2.0-20.0Prolactin dilution studies are done to determine ifthere is a high-dose hook effect (i.e. a non-linearassay response due to a very high concentration ofProlactin). This is reported to occur at Prolactinconcentrations at or above 30,000 ng/mL.This test is not recommended for identifyingmacroprolactin. The [employer] [facility], Prolactin, Total and Monomeric is therecommended test (Order code [id number]).THIS TEST WAS PERFORMED AT:[employer] [address] [id number] HYLTON MD Blood Venous blood specimen / Unknown 01/03/2025 2:39 PM EST 01/03/2025 4:13 PM EST Yolanda Alberts MD LAB BLOOD ORDERABLES Final Res ult Performing Organization Address City/[facility]/ZIP Co de Phone Number [facility] [address] [place] [phone] * TSH W/Reflex to FT4 (01/03/2025 2:39 PM EST) TSH reflex Free T4 0.65 0.32 - 4.0 uIU/mL [facility] Blood Venous blood specimen / Unknown 01/03/2025 2:39 PM EST 01/03/2025 4:13 PM EST Yolanda Alberts MD LAB BLOOD ORDERABLES Final Res ult Performing Organization Address City/[facility]/ZIP Co de Phone Number [facility] [address] [place] [phone] * LH (01/03/2025 2:39 PM EST) Lutenizing Hormone 10.1 mIU/mL [facility] Comment:Reference Range Foll icular Phase 1.9-12.5 Mid-Cycle Peak 8.7-76.3 Luteal Phase 0.5-16.9 Postmenopausal 10.0-54.7THIS TEST WAS PERFORMED AT:[employer] [place] [phone] HYLTON MD Blood Venous blood specimen / Unknown 01/03/2025 2:39 PM EST 01/03/2025 4:13 PM EST Yolanda Alberts MD LAB BLOOD ORDERABLES Final Res ult Performing Organization Address [facility] de Phone Number [facility] [address] [place] [phone] * FSH (01/03/2025 2:39 PM EST) Follicle Stimulating Hormone 3.4 mIU/mL [facility] Comment:Reference Range Foll icular Phase 2.5-10.2 Mid-cycle Peak 3.1-17.7 Luteal Phase 1.5- 9.1 Postmenopausal 23.0-116.3THIS TEST WAS PERFORMED AT:[employer] [address] [phone] HYLTON MD Blood Venous blood specimen / Unknown 01/03/2025 2:39 PM EST 01/03/2025 4:13 PM EST Yolanda Alberts MD LAB BLOOD ORDERABLES Final Res ult Performing Organization Address [facility] Co de Phone Number [facility] [address] [place] [phone] * XR KUB and Upright 2 Views (01/03/2025 2:17 PM EST) Anatomical Region Laterality Modality Radiographic Babita ging 01/03/2025 2:17 PM EST Narrative 01/03/2025 2:45 PM EST ?[facility] ?[address] ?[place] [address] ?XRay Report ? Signed ? Patient: Brayden,Caitlen ?MR#: [id number] ?? 08 ? : 2005 ?Acct:[id number] ? Age/Sex: 19 / F ?ADM Date: 01/03/25 ? Loc: HO.HHCX ? Attending Dr: Yolanda Alberts MD ? Ordering Physician: Yolanda Alberts ?? Date of Service: 01/03/25 ?? Procedure(s): XR KUB ?? Accession Number(s): [id number] ? cc: Yolanda Alberts ? EXAMINATION: ?? [...] DD/ 1417 ? TD/TT: 01/03/25 1430 ? Staff Radiation Therapist: ? Procedure Note Erika, Image - 01/03/[address] [address] XRay Report Signed Patient: Chay Owen#: [id number] [birth year] : 2005Acct:[id number] Age/Sex: 19 / FADM Date: 01/03/25 Loc: HO.HHCX Attending Dr: Yolanda Alberts MD Ordering Physician: Yolanda Alberts Date of Service: 01/03/25 Procedure(s): XR KUB Accession Number(s): [id number] cc: Yolanda Alberts EXAMINATION: XR ABDOMEN KUB [...] Pollo Brewer MD 01/03/2025 02:41 PM EST RP Dictated By: Pollo Hudson MD Signed By: <Electronically signed by Pollo Segura MDin OV> 01/03/25 1441 DD/ 1417 TD/TT: 01/03/25 1430 Staff Radiation Therapist: Yolanda Alberts MD IMG XR PROCEDURES Final Result from Last 3 Months Insurance , [address] [place] [address] Care Teams Comic Book Designer Relationship Specialty Start Date End Date Yolanda Alberts MD [address] [place] [phone] PCP - General Family Medicine 03/23/24
--- OUTSIDE RECORDS SUMMARY | 2025-01-24 16:24 | XMS_ITS | Encounter Summary ---
Author Organization [facility] Address [address] [place] [address] Phone Care Team Providers Care Research And Evaluation Manager Name Role Phone Gladis Jones MD Primary Care Provider [phone] Encounter Details Date Type Department Care Team (Late st Contact Info) Description 06/30/2017 Conversion Encounter [facility] [address] [place] [address] Social History Tobacco Use Types Packs/Day Years [...] on filedocumented in this encounter Care Teams Research And Evaluation Manager Relationship Specialty Start Date End Date Gladis Jones MD [address] [place] [address] PCP - General Pediatrics 05/14/18 03/14/24 documented as of this encounter
--- OUTSIDE RECORDS SUMMARY | 2025-01-24 16:24 | XMS_ITS | Encounter Summary ---
Author Organization [facility] Address [address] [place] [address] Phone Care Team Providers Care Conciliator Name Role Phone Gladis Jones MD Primary Care Provider [phone] Reason for Visit * Reason Comments Med Refill Encounter Details Date Type Department Care Team (Late st Contact Info) Description 08/03/2020 Refill [facility] [address] [place] [address] Gladis Jones MD [address] [place] [address] Encounter for initial prescription of contraceptive pills [...] May.She is faxing the orders back to [facility] so MD can see the different [...] AM EDT I called the pharmacist at [facility] She states what was sent over [...] pills documented in this encounter Care Teams Conciliator Relationship Specialty Start Date End Date Gladis Jones MD [address] [place] [address] PCP - General Pediatrics 05/14/18 03/14/24 documented as of this encounter
--- OUTSIDE RECORDS SUMMARY | 2025-01-24 16:24 | XMS_ITS | Encounter Summary ---
Author Organization [facility] Address [address] [place] [address] Phone Care Team Providers Care Paver Operator Name Role Phone Gladis Jones MD Primary Care Provider [phone] Encounter Details Date Type Department Care Team (Late st Contact Info) Description 07/18/[address] [facility] [place] [address] [place], [place] [phone] Family Medicine, Physician [address] [place] [address] Social History Tobacco Use Types Packs/Day Years [...] on filedocumented in this encounter Care Teams Paver Operator Relationship Specialty Start Date End Date Gladis Jones MD [address] [place] [address] PCP - General Pediatrics 05/14/18 03/14/24 documented as of this encounter
--- OUTSIDE RECORDS SUMMARY | 2025-01-24 16:24 | XMS_ITS | Encounter Summary ---
Author Organization [facility] Address [address] [place] [address] Phone Care Team Providers Care Sales Clerk Name Role Phone Gladis Jones MD Primary Care Provider [phone] Encounter Details Date Type Department Care Team (Late st Contact Info) Description 12/31/2011 Documentation [facility] [place] [address] [place], [place] [phone] Family Medicine, Physician [address] [place] [address] Social History Tobacco Use Types Packs/Day Years [...] on filedocumented in this encounter Care Teams Sales Clerk Relationship Specialty Start Date End Date Gladis Jones MD [address] [place] [address] PCP - General Pediatrics 05/14/18 03/14/24 documented as of this encounter
--- OUTSIDE RECORDS SUMMARY | 2025-01-24 16:24 | XMS_ITS | Encounter Summary ---
Author Organization [facility] Address [address] [place] [address] Phone Care Team Providers Care Baffle Installer Name Role Phone Gladis Jones MD Primary Care Provider [phone] Encounter Details Date Type Department Care Team (Late st Contact Info) Description 02/11/2012 Documentation [facility] [place] Medicine [address] [place], [place] [phone] Family Medicine, Physician [address] [place] [address] Social History Tobacco Use Types Packs/Day Years [...] on filedocumented in this encounter Care Teams Baffle Installer Relationship Specialty Start Date End Date Gladis Jnoes MD [address] [place] [address] PCP - General Pediatrics 05/14/18 03/14/24 documented as of this encounter
--- OUTSIDE RECORDS SUMMARY | 2025-01-24 16:25 | XMS_ITS | Clinical Summary ---
Author Organization [facility] Address [address] [place] [address] Phone Care Team Providers Care Building Mover Name Role Phone Unavailable Primary Care Provider [...] for 28 days. 28 tablet 2 09/08/20 Active Active Problems Problem Noted Date Diagnosed [...] with EMT school. Therapist ~11/03-04/04 Nikunj Cotto [facility] (school-based), or [email or web address]. Didn't find therapy helpful. Assessment & Plan [...] done with school. I also suggested a children's author that would be covered by insurance, but she isn't interested in this. Assessment & Plan (03/05/2022 12:46 PM EDT): Weight down a few pounds today, and orthostatics are borderline. Her weight loss now is likely confounded by having the Flu a couple weeks ago. I recommended to call Anjana about outpatient management, but she isn't interested at this time. She plans to see Manager Android, Carly Jefferson, for an eating plan and [...] Overview (01/12/2022): Followed at [facility] in [place], since 05/2020 - first mass right breast approx 11per mom: Had another breast ultrasound ~Nov 2020, very good experience at [facility], found another mass, likely cyst, plan to [...] rhinitis 08/18/2017 Overview (08/18/2017): Has seen Dr. Cruz/Wool Cleaner. Has been on flonase and loratadine. Possible food allergies also. Assessment & Plan (11/29/2019 10:32 AM EST): Continue prn meds. Assessment & Plan (04/26/2018 8:59 AM EDT): Use shanika & sheila Family history of disorder of metabolism 015 Overview (08/31/2022): Mom eval. iin [facility] (Dr. 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 Suspect that MGM also has a mitochondrial disorder based on her sx. Consult for Araceli with Dr. Lewis/ genetics at [facility] [place] - % risk cannot be estimated [...] 01/09/2021 Overview (11/27/2018): Diag with ADHD by [facility]. Trial of adderall xr started 2011 and [...] ry of *Thrombophilia, Family history of *Sudden /NE under 55, No family history of Developmental [...] Completed 06/09/2020, 016 Procedures * Due to [place] [employer] law, this organization might not be sharing sensitive test results. Procedure Name Priority Date/Time Associated Diagnosis Comments CHLAMYDIA AND GONORRHEA, AMPLIFIED Routine 03/05/2022 12:15 PM EDT Screening for chlamydial disease from Last 3 Months or Most Recently Relevant to Health Maintenance Results * Due to [place] [employer] law, this organization might not be sharing sensitive test results. * Chlamydia and Gonorrhoea, Amplified (Urine) (03/05/2022 12:15 PM EDT) Chlamydia Trachomatis, DNA Probe NEGATIVE (NEG) [facility] Comment: No Chlamydia Trachomatis RNA detected in this patient's sample ? (REFERENCE RANGE/NORMAL VALUE: NOT DETECTED) ? Note: This test uses courseware developer- mediated amplification method to detect rRNA from C. Trachomatis URINE GC AMP PROBE NEGATIVE (NEG) [facility] Comment: No Neisseria Gonorrhoeae RNA detected in this patient's sample ? (REFERENCE RANGE/NORMAL VALUE: NOT DETECTED) ? NOTE: This test uses courseware developer-mediated amplification method to detect rRNA from N.Gonorrhoeae. [...] without risk of sexual abuse. Consult the [facility] if needed. Contact phone number . Therapeutic failure or success cannot be determined with the Aptima Combo2 assay since nucleic acid may persist following appropriate antimicrobial therapy. The Centers for Disease Control and Prevention (CDC) recommends confirmatory retesting using culture or a different nucleic acid amplification test when positive results occur, if indicated. Testing performed or reported by [facility], a Service of [facility], [address] [place] [address] Dylan Sharma MD, Network Operations Center Engineer [facility]# [id number] Urine (Urine, Random (not clean void)) 03/05/2022 12:15 PM EDT 03/05/2022 10:14 PM EDT us Gladis Jones MD LAB MICROBIOLOGY - GENERAL OR DERABLES Final Result [facility] from Last 3 Months or Most Recently Relevant to Health Maintenance Insurance [facility] NON PCC [facility] COMMERCIAL
--- OUTSIDE RECORDS SUMMARY | 2025-01-24 16:25 | XMS_ITS | Encounter Summary ---
Author Organization [facility] Address [address] [place] [address] Phone Care Team Providers Care Manufacturing Helper Name Role Phone Gladis Jones MD Primary Care Provider [phone] Encounter Details Date Type Department Care Team (Late st Contact Info) Description 02/07/2015 Documentation [facility] [address] [place], [place] [phone] Family Medicine, Physician [address] [place] [address] Social History Tobacco Use Types Packs/Day Years [...] filedocumented in this encounter Care Teams Manufacturing Helper Relationship Specialty Start Date End Date Gladis Jones MD [address] [place] [address] PCP - General Pediatrics 05/14/18 03/14/24 documented as of this encounter
--- OUTSIDE RECORDS SUMMARY | 2025-01-24 16:25 | XMS_ITS | Encounter Summary ---
Author Organization [employer] Address [address] [facility] 7 [place] [address] Care Team Providers Care Technical Specialist Cytology Name Role Phone Yolanda Alberts MD Primary Care Provider [phone] Reason for Visit * Reason Onset Date Comments Results 01/07/2025 Encounter Details Date Type Department Care Team ([facility] st Contact Info) Description 01/07/2025 Telephone [facility] [address] [place], [place] [phone] Yolanda Alberts MD [address] [place], [place] [phone] Results Social History Tobacco Use Types Packs/Day Years [...] PM EDT documented as of this encounter Miscellaneous Notes * Telephone Encounter - Tiffanie Harris RN - 01/07/2025 10:08 AM EST TC placed to patient [phone] in regards to below message. Patient verbalized understanding andis agreeable to miralax clean out directions. Please send handout to patient. Patient also informedof hormonal labs all being WNL. Patient to f/u PRN. ----- Message from Yolanda Alberts MD sent at 01/07/2025 8:41 AM EST ----- Please let patient know KUB showed stool backed into transverse colon. Recommend Miralax cleanout,I can send her a handout on how to do this. Please let me know if she wants me to do this. Hormonallabs are all normal. documented in this encounter Plan of Treatment Not on file documented as of this encounter Visit Diagnoses Not on filedocumented in this encounter Additional Health Concerns Assessment Noted Time PHQ-9 Depression Total Score: 0 03/26/20 1:08 PM EDT documented as of this encounter Care Teams Technical Specialist Cytology Relationship Specialty Start Date End Date Yolanda Alberts MD [address] [place] [address] PCP - General Family Medicine 03/23/24 documented as of this encounter
--- OUTSIDE RECORDS SUMMARY | 2025-01-24 16:25 | XMS_ITS | Encounter Summary ---
Author Organization [facility] Address [address] [place] [address] Phone Care Team Providers Care Senior Product Consultant Name Role Phone Gladis Jones MD Primary Care Provider [phone] Encounter Details Date Type Department Care Team (Late st Contact Info) Description 09/16/2014 Documentation [facility] [place] [address] [place], [place] [phone] Family Medicine, Physician [address] [place] [address] Social History Tobacco Use Types Packs/Day Years [...] on filedocumented in this encounter Care Teams Senior Product Consultant Relationship Specialty Start Date End Date Gladis Jones MD [address] [place] [address] PCP - General Pediatrics 05/14/18 03/14/24 documented as of this encounter
== END 2025-01-24 13:02 | disposition home or self-care (01) ==
LOC: HO.US 13:01
PROVIDERS: PCP General Practice; Visit Provider General Practice
DX: N94.6 Dysmenorrhea, unspecified (principal)
CPT/HCPCS: 76830; 76856

== ENCOUNTER → 2025-01-24 13:03 | Outpatient (BNV) | payer OTHER, SELFPAY | PROVIDERS: PCP General Practice; Visit Provider Radiology Diagnostic Radiology | DX: N85.4 Malposition of uterus (principal) | CPT/HCPCS: 76830; 76856 ==

== ENCOUNTER 2025-03-15 15:46 | Outpatient (REF) | payer OTHER, SELFPAY ==
--- NOTE | ~2025-03-15 | XR_ITS ---
EXAMINATION: XR CHEST CLINICAL INFORMATION: Persistent cough COMPARISON: None available. TECHNIQUE: 2 views of the chest were obtained. FINDINGS: The cardiac, hilar, and mediastinal contours are normal. The lungs are clear bilaterally. There is no pneumothorax or pleural effusion. There is no focal osseous or soft tissue abnormality. XR/XR chest 2V IMPRESSION: Normal chest. Electronically signed by: Remberto Rock MD 03/15/2025 04:02 PM EDT
--- OUTSIDE RECORDS SUMMARY | 2025-03-15 15:50 | XMS_ITS | Encounter Summary ---
Author Organization [employer] Address [address] [facility] 7t [place] [address] Care Team Providers Care Director Of Solutions Architecture Name Role Phone Yolanda Alberts MD Primary Care Provider [phone] Reason for Visit * Reason Comments Allergic Reaction Lung Pain Cough Sore Throat Encounter Details Date Type Department Care Team ([facility] st Contact Info) Description 03/15/2025 3:00 PM EDT Office Visit [facility] [address] [phone] Persistent cough (Primary Dx) Social History Tobacco Use Types Packs/Day Years [...] Sign Reading Time Taken Comments Blood Pressure 125/82 03/15/2025 3:08 PM EDT Pulse 79 03/15/2025 3:08 PM EDT Temperature 36.7 ??C (98 ??F) 03/15/2025 3:08 PM EDT Respiratory Rate 18 03/15/2025 3:08 PM EDT Oxygen Saturation 97% 03/15/2025 3:08 PM EDT Inhaled Oxygen Concentration - - Weight 89.6 kg (197 lb 9.6 oz) 03/15/2025 3:08 P M EDT Height 170.2 cm (5' 7 ) 03/15/2025 3:08 PM EDT Body Mass Index 30.95 03/15/2025 3:08 PM EDT documented in this encounter Plan of Treatment Upcoming Encounters Date Type Department Care Team (Late st Contact Info) Description 05/20/2025 2:30 PM EDT Procedure Visit [facility] MED[facility] [address] [place] [address] Yolanda Alberts MD [address] [place] [address] Scheduled Orders Name Type Priority Associated Diagnoses Orde r Schedule XR Chest 2 Views Imaging Routine Persistent cough Expected: 03/15/2025, Expires: 03/15/2026 documented as of this encounter Procedures Procedure Name Priority Date/Time Associated Diagnosis Comments POCT INFLUENZA B (ID NOW RAPID MOLECULAR) Routine 03/15/2025 3:31 PM EDT Persistent cough POCT INFLUENZA A (ID NOW RAPID MOLECULAR) Routine 03/15/2025 3:31 PM EDT Persistent cough POCT RAPID COVID ANTIGEN Routine 03/15/2025 3:31 PM EDT Persistent cough POCT RAPID STREP A Routine 03/15/2025 3: 31 PM EDT Persistent cough documented in this encounter Results * POCT rapid strep A manually resulted (03/15/2025 3:31 PM EDT) [facility] Rapid Strep A Screen Negative Negative, None Detected Swab 03/15/2025 3:31 PM EDT [facility] POINT OF CARE TEST ENTER/EDIT ORDERABLES Final Result * POCT Rapid COVID Ag (03/15/2025 3:31 PM EDT) [facility] Rapid COVID Ag Negative Swab 03/15/2025 3:31 PM EDT [facility] POINT OF CARE TEST ENTER/EDIT ORDERABLES Final Result * Influenza A (ID NOW Rapid Molecular) (03/15/2025 3:31 PM EDT) [facility] Influenza A Negative Negative, Indeterminate [facility] Swab 03/15/2025 3:31 PM EDT [facility] POINT OF CARE TEST ENTER/EDIT ORDERABLES Final Result [facility] [address] [place] [phone] * Influenza B (ID NOW Rapid Molecular) (03/15/2025 3:31 PM EDT) [facility] Influenza B Negative Negative, Indeterminate [facility] Swab 03/15/2025 3:31 PM EDT [facility] [employer] POINT OF CARE TEST ENTER/EDIT ORDERABLES Final Result [facility] [address] [place] [address] [phone] documented in this encounter Visit Diagnoses Diagnosis Persistent cough- Primary documented in this encounter Administered Medications Inactive Administered Medications - up to 3 most recent administrations Medication Order MAR Action Action Date Dose Rate Site albuterol (2.5 MG/3ML) 0.083% nebulizer solution 2.5 mg 2.5 mg, Nebulization, Once, On Tue03/15/25 at 1545, For 1 doseIndications:Persistent cough Given 03/15/2025 3:45 PM EDT 2.5 mg documented in this encounter Additional Health Concerns Assessment Noted Time PHQ-9 Depression Total Score: 0 03/26/20 1:08 PM EDT documented as of this encounter Care Teams Director Of Solutions Architecture Relationship Specialty Start Date End Date Yolanda Alberts MD [address] [place] [phone] PCP - General Family Medicine 03/23/24 documented as of this encounter
--- OUTSIDE RECORDS SUMMARY | 2025-03-15 15:50 | XMS_ITS | Encounter Summary ---
Author Organization [employer] Address [address] [facility] 7 [place] [address] Care Team Providers Care Assistant Manager Of Operations Name Role Phone Yolanda Alberts MD Primary Care Provider [phone] Encounter Details Date Type Department Care Team (Latest Contact Info) Description 03/13/2025 Travel Social History Tobacco Use Types Packs/Day [...] as of this encounter Plan of Treatment Upcoming Encounters Date Type Department Care Team (Late st Contact Info) Description 05/20/2025 2:30 PM EDT Procedure Visit [facility] MED[facility] [address] [place] [address] Yolanda Alberts MD [address] [place] [address] documented as of this encounter Visit Diagnoses Not on filedocumented in this encounter Additional Health Concerns Assessment Noted Time PHQ-9 Depression Total Score: 0 03/26/20 24 1:08 PM EDT documented as of this encounter Care Teams Assistant Manager Of Operations Relationship Specialty Start Date End Date Yolanda Alberts MD [address] [place] [address] PCP - General Family Medicine 03/23/24 documented as of this encounter
--- OUTSIDE RECORDS SUMMARY | 2025-03-15 15:50 | XMS_ITS | Encounter Summary ---
Author Organization [employer] Address [address] [facility] 7 [place] [address] Care Team Providers Care Science Specialist Name Role Phone Yolanda Alberts MD Primary Care Provider [phone] Encounter Details Date Type Department Care Team (Latest Contact Info) Description 03/15/2025 Travel Social History Tobacco Use Types Packs/Day [...] Description 05/20/2025 2:30 PM EDT Procedure Visit [facility] MED[facility] [address] [place] [address] Yolanda Alberts MD [address] [place] [address] documented as of this encounter Visit Diagnoses Not on filedocumented in this encounter Additional Health Concerns Assessment Noted Time PHQ-9 Depression Total Score: 0 03/26/20 24 1:08 PM EDT documented as of this encounter Care Teams Science Specialist Relationship Specialty Start Date End Date Yolanda Alberts MD [address] [place] [address] PCP - General Family Medicine 03/23/24 documented as of this encounter
--- OUTSIDE RECORDS SUMMARY | 2025-03-15 15:50 | XMS_ITS | Encounter Summary ---
Author Organization [facility] Address [address] [place] [phone] Phone Care Team Providers Care Supervisor Sewing Department Name Role Phone Gladis Jones MD Primary Care Provider [phone] Encounter Details Date Type Department Care Team (Late st Contact Info) Description 02/11/2012 Documentation [facility] [place] [address] [place], [place] [phone] Family Medicine, Physician [address] [place] [address] Social History Tobacco Use Types Packs/Day Years [...] on filedocumented in this encounter Care Teams Supervisor Sewing Department Relationship Specialty Start Date End Date Gladis Jones MD [address] [place] [address] PCP - General Pediatrics 05/14/18 03/14/24 documented as of this encounter
--- OUTSIDE RECORDS SUMMARY | 2025-03-15 15:50 | XMS_ITS | Encounter Summary ---
Author Organization [facility] Address [address] [place] [address] Phone Care Team Providers Care Vibrator Operator Name Role Phone Gladis Jones MD Primary Care Provider [phone] Encounter Details Date Type Department Care Team (Late st Contact Info) Description 12/31/2011 Documentation [facility] Family Medicine [address] [place], [place] [phone] Family Medicine, Physician [address] [place] [address] Social History Tobacco Use Types Packs/Day Years [...] on filedocumented in this encounter Care Teams Vibrator Operator Relationship Specialty Start Date End Date Gladis Jones MD [address] [place] [address] PCP - General Pediatrics 05/14/18 03/14/24 documented as of this encounter
--- OUTSIDE RECORDS SUMMARY | 2025-03-15 15:50 | XMS_ITS | Encounter Summary ---
Author Organization [employer] Address [address] [facility] 7 [place] [address] Care Team Providers Care Meat Curer Name Role Phone Yolanda Alberts MD Primary Care Provider [phone] Reason for Referral * Consultation (STAT) - Authorized Specialty Diagnoses / Procedures Referred By Contrenae t Referred To Contact Allergy Diagnoses H/O severe allergy Gurwinder Rose MD [address] [place] [address] Phone: tel: fax: [facility] & [facility], [facility] ([facility]) [address] [place] [phone] Phone: tel: fax: Referral ID Status Reason Start Date Expiration Date Visits Requested Visits Authorized [id number] Authorized Specialty Services Required 03/13/2025 03/13/2026 1 1 Reason for Visit * Reason Comments Allergic Reaction Encounter Details Date Type Department Care Team (Late st Contact Info) Description 03/13/2025 3:00 PM EDT Office Visit [facility] [address] [place] [phone] Gurwinder Rose MD [address] [place] [address] [phone] H/O severe allergy (Primary Dx); Elevated blood pressure reading in office without diagnosis of hypertension; H/O abdominal pain Social History Tobacco Use Types Packs/Day Years [...] Sign Reading Time Taken Comments Blood Pressure 124/95 03/13/2025 3:00 PM EDT Pulse 88 03/13/2025 3:00 PM EDT Temperature 36.7 ??C (98 ??F) 03/13/2025 3:00 PM EDT Respiratory Rate 18 03/13/2025 3:00 PM EDT Oxygen Saturation 98% 03/13/2025 3:00 PM EDT Inhaled Oxygen Concentration - - Weight 88.4 kg (194 lb 12.8 oz) 03/13/2025 3:00 PM EDT Height - - Body Mass Index 30.51 12/28/2024 4:16 PM EST documented in this encounter Progress Notes * Gurwinder Rose MD - 03/13/2025 3:00 PM EDT Subjective Patient ID: Araceli Owen is a 20 y.o. female. HPI 1.5 weeks ago Araceli was sitting on couch at home and suddenly started having facial swelling, redblotches on face, itching, watery eyes, hives on chest. Took Benadryl 50 mg then, and 50 mg the next AM. Took 2 days to resolve. She had another episode 3-4 days later with with associated wheezing. 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 Was OK until 2 days ago when she had onset of stuffy nose, itchy throat, blurry vision, dizziness, nausea. Took Benadryl 50 mg with some relief, still has mild stuffy nose and itchy throat. Never had similar sx in past. H/o hives with amoxicillin age 1 y.o. Denies new medications, soap, shampoo, detergent, cosmetics, deodorant, ect. Started Zoloft 2 months ago. No h/o asthma. Started taking Claritin 2 weeks ago. Also has several month h/o intermittent upper abd discomfort and bloating, constipation. Lives with boyfriend and his parents. LMP=13 weeks ago. Works as EMT. Vapes nicotine. Declines NRT. Occasional EtOH. No illicit substances. Patient Active Problem List Diagnosis Adjustment disorder with anxious mood Allergic rhinitis Bilateral breast cysts Bilateral patellofemoral syndrome Dysmenorrhea Eating disorder Family history of disorder of metabolism Fibrocystic breast changes Lazy eye, left Marijuana use Migraine with aura 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CMS/HCC) Miscarriage within last 12 months Left lower quadrant abdominal pain Abdominal pain Bloating The following portions of the chart were reviewed this encounter and updated as appropriate: Tobacco Allergies Meds Problems Med Hx Surg Hx Fam Hx Review of Systems Constitutional: Negative for fever. HENT: Positive for rhinorrhea. Respiratory: Negative for shortness of breath. Cardiovascular: Negative for chest pain. Gastrointestinal: Negative for abdominal pain. Skin: Negative for rash. Neurological: Negative for headaches. Objective Physical Exam Constitutional: Appearance: Normal appearance. HENT: Right Ear: Tympanic membrane, ear canal and external ear normal. Left Ear: Tympanic membrane, ear canal and external ear normal. Nose: Nose normal. Mouth/Throat: Mouth: Mucous membranes are moist. Pharynx: Oropharynx is clear. Eyes: Conjunctiva/sclera: Conjunctivae normal. Pupils: Pupils are equal, round, and reactive to light. Cardiovascular: Rate and Rhythm: Normal rate and regular rhythm. Heart sounds: No murmur heard. Pulmonary: Effort: Pulmonary effort is normal. Breath sounds: Normal breath sounds. Musculoskeletal: General: Normal range of motion. Cervical back: No tenderness. Skin: Findings: No rash. Neurological: Mental Status: She is alert. Gait: Gait is intact. Psychiatric: Mood and Affect: Mood normal. Behavior: Behavior normal. Procedures Assessment/Plan Diagnoses and all orders for this visit: H/O severe allergy ?etiology. Was diagnosed with anaphylaxis March 06 at [facility]. She was treated and released. Has had mild allergy symptoms over the past 2 days that partially improved with oral Benadryl. Advised to continue Claritin. I prescribed more EpiPen's to use in case of., Benadryl to use today for throat itching, Flonase, azelastine nasal spray, albuterol HFA with spacer, and prescription for prednisone to use as needed. She states allergy referral was made, but when they called the office they were told the next available appointment is in several months and they would be put on a cancellation list. I sent a stat referral to a different animal nurse. Return to clinic if symptoms recur. Go to the ED if you need to use the EpiPen. Elevated blood pressure reading in office without diagnosis of hypertension Prescribed home BP monitor. Reviewed BP parameters, given written BP log that includes BP parameters, to keep daily. Call if BP readings are elevated. H/O abdominal pain H. pylori stool antigen test ordered. Will call patient with results. - Helicobacter pylori Antigen, EIA, Stool; Future Other orders - azelastine (Astelin) 0.1 % nasal spray; Administer 2 sprays into each nostril 2 times daily. Use in each nostril as directed - fluticasone (Flonase) 50 MCG/ACT nasal spray; Administer 1-2 sprays into each nostril Once per day. Shake gently. Before first use, prime pump. After use, clean tip and replace cap. - diphenhydrAMINE (BENADryl) 25 MG capsule; Take 2 capsules (50 mg) by mouth every 6 (six) hours ifneeded for itching. May take 1-2 capsules prn rashor itching - predniSONE (Deltasone) 20 MG tablet; Take 2 tablets (40 mg) by mouth Once per day. - EPINEPHrine (Epipen) 0.3 MG/0.3ML injection syringe; Inject 0.3 mL (0.3 mg) as directed 1 (one) time if needed for anaphylaxis. Inject into upper leg. Call 911 after use. - albuterol 108 (90 Base) MCG/ACT inhaler; Inhale 2 puffs every 4 (four) hours if needed for wheezing or shortness of breath. - Spacer/Aero-Holding Chambers (OptiChamber Shannan) misc; 1 each every 4 (four) hours if needed (asthma). - Blood Pressure kit; 1 each 2 times daily. documented in this encounter Plan of Treatment Upcoming Encounters Date Type Department Care Team (Late st Contact Info) Description 05/20/2025 2:30 PM EDT Procedure Visit [facility] [address] [place], [place] [phone] Yolanda Alberts MD [address] [place] [address] Scheduled Orders Name Type Priority Associated Diagnoses Orde r Schedule Helicobacter pylori??Antigen, EIA, Stool Lab Routine H/O abdominal pain Expected: 03/13/2025 (Approximate), Expires: 03/13/2026 Scheduled Referrals Name Type Priority Associated Diagnoses Orde r Schedule Referral to Allergy Outpatient Referral STAT H/O severe allergy Expected: 03/13/2025 (Approximate), Expires: 03/13/2026 documented as of this encounter Visit Diagnoses Diagnosis H/O severe allergy- Primary Elevated blood pressure reading in office without diagnosis of hypertension H/O abdominal pain documented in this encounter Additional Health Concerns Assessment Noted Time PHQ-9 Depression Total Score: 0 03/26/20 24 1:08 PM EDT documented as of this encounter Care Teams Meat Curer Relationship Specialty Start Date End Date Yolanda Alberts MD [address] [place] [address] PCP - General Family Medicine 03/23/24 documented as of this encounter
--- OUTSIDE RECORDS SUMMARY | 2025-03-15 15:50 | XMS_ITS | Encounter Summary ---
Author Organization [employer] Address [address] [facility] 7 [place] [address] Care Team Providers Care Postdoctoral Research Associate Name Role Phone Yolanda Alberts MD Primary Care Provider [phone] Reason for Visit * Reason Onset Date Comments No Show 03/13/2025 Encounter Details Date Type Department Care Team ([facility] st Contact Info) Description 03/13/2025 Telephone [facility] MEDICINE [address] [place], [place] [phone] Cherelle Garcia DO [address] [place], [place] [phone] No Show Social History Tobacco Use Types Packs/Day Years [...] encounter Miscellaneous Notes * Telephone Encounter - Xuan Carbone RN - 03/13/2025 11:49 AM EDT Appt has been r/s to walk in clinic for 3pm * Telephone Encounter - Linda Richardson - 03/13/2025 11:31 AM EDT No show appointment 03/13/2025 documented in this encounter Plan of Treatment Upcoming Encounters Date Type Department Care Team (Late st Contact Info) Description 05/20/2025 2:30 PM EDT Procedure Visit [facility] MED[facility] [address] [place] [address] Yolanda Alberts MD [address] [place] [address] documented as of this encounter Visit Diagnoses Not on filedocumented in this encounter Additional Health Concerns Assessment Noted Time PHQ-9 Depression Total Score: 0 03/26/20 1:08 PM EDT documented as of this encounter Care Teams Postdoctoral Research Associate Relationship Specialty Start Date End Date Yolanda Alberts MD [address] [place] [address] PCP - General Family Medicine 03/23/24 documented as of this encounter
--- OUTSIDE RECORDS SUMMARY | 2025-03-15 15:50 | XMS_ITS | Encounter Summary ---
Author Organization [facility] Address [address] [place] [address] Phone Care Team Providers Care Black Studies Professor Name Role Phone Gladis Jones MD Primary Care Provider [phone] Encounter Details Date Type Department Care Team (Late st Contact Info) Description 07/18/2010 Documentation [facility] Family Medicine [address] [place], [place] [phone] Family Medicine, Physician [address] [place] [address] Social History Tobacco Use Types Packs/Day Years [...] on filedocumented in this encounter Care Teams Black Studies Professor Relationship Specialty Start Date End Date Gladis Jones MD [address] [place] [address] PCP - General Pediatrics 05/14/18 03/14/24 documented as of this encounter
--- OUTSIDE RECORDS SUMMARY | 2025-03-15 15:51 | XMS_ITS | Encounter Summary ---
Author Organization [facility] Address [address] [place] [phone] Phone Care Team Providers Care Metal Checker Name Role Phone Gladis Jones MD Primary Care Provider [phone] Encounter Details Date Type Department Care Team (Late st Contact Info) Description 02/16/2010 Documentation [facility] Family Medicine [address] [place], [place] [phone] Family Medicine, Physician [address] [place] [address] Social History Tobacco Use Types Packs/Day Years [...] on filedocumented in this encounter Care Teams Metal Checker Relationship Specialty Start Date End Date Gladis Jones MD [address] [place] [address] PCP - General Pediatrics 05/14/18 03/14/24 documented as of this encounter
--- OUTSIDE RECORDS SUMMARY | 2025-03-15 15:51 | XMS_ITS | Clinical Summary ---
Author Organization [facility] Address [address] [place] [address] 7[address] [place] [address] Care Team Providers Care Sports Intern Name Role Phone Yolanda Alberts MD Primary Care Provider [phone] Allergies Active Allergy Reactions Criticality Noted Date Comments Amoxicillin Hives 03/26/2024 Medications * This document contains information received from the source organization and may not represent a complete record from that organization. dicyclomine (Bentyl) 10 MG capsule Take 1 capsule (10 mg) by mouth 4 times daily. 120 capsule 2 04/05/20 24 2024 Active simethicone (Mylicon) 80 MG tablet Take 1 tablet (80 mg) by mouth if needed in the morning, at noon, in the evening, and at bedtime (bloating). 120 tablet 2 06/01/20 24 Active Sennosides (Senna) 8.6 MG capsuleIndicat ions:Bloating, Abdominal pain, unspecified abdominal location Take 1-2 tabs po at bedtime prn consitpation 60 capsule 3 06/01/20 24 Active azelastine (Astelin) 0.1 % nasal spray Administer 2 sprays into each nostril 2 times daily. Use in each nostril as directed 30 mL 1 03/13/20 25 2025 Active fluticasone (Flonase) 50 MCG/ACT nasal spray Administer 1-2 sprays into each nostril Once per day. Shake gently. Before first use, prime pump. After use, clean tip and replace cap. 48 g 3 03/13/20 25 2025 Active diphenhydrAMIN E (BENADryl) 25 MG capsule Take 2 capsules (50 mg) by mouth every 6 (six) hours if needed for itching. May take 1-2 capsules prn rashor itching 60 capsule 1 03/13/20 25 2025 Active predniSONE (Deltasone) 20 MG tablet Take 2 tablets (40 mg) by mouth Once per day. 10 tablet 1 03/13/20 Active EPINEPHrine (Epipen) 0.3 MG/0.3ML injection syringe Inject 0.3 mL (0.3 mg) as directed 1 (one) time if needed for anaphylaxis. Inject into upper leg. Call 911 after use. 2 each 2 03/13/20 25 2025 Active Spacer/Aero-Ho lding Chambers (OptiChamber Shannan) misc 1 each every 4 (four) hours if needed (asthma). 1 each 03/13/20 Active Blood Pressure kit 1 each 2 times daily. 1 kit 03/13/20 25 2025 Active albuterol 108 (90 Base) MCG/ACT inhalerIndicat ions:Persisten t cough Inhale 2 puffs every 6 (six) hours if needed for wheezing. 18 g 11 03/15/20 25 2025 Active fluticasone (Flonase) 50 MCG/ACT nasal spray Administer 1-2 sprays into each nostril Once per day. Shake gently. Before first use, prime pump. After use, clean tip and replace cap. 16 g 2 08/09/20 24 2024 Discontinued(R eorder (will not trigger notification to Pharmacy)) albuterol 108 (90 Base) MCG/ACT inhaler Inhale 2 puffs every 4 (four) hours if needed for wheezing or shortness of breath. 53.6 g 2 03/13/20 25 2024 Discontinued Hospital, Clinic, or Other Facility Administered Medication Ordered Dose Route Frequency Start Date End Date Status albuterol (2.5 MG/3ML) 0.083% nebulizer solution 2.5 mgIndications:Persis tent cough 2.5 mg NEBULIZATION Once 03/15/2025 03/15/2025 Ended Active Problems Problem Noted Date Diagnosed Date [...] disease 03/28/2024 Overview (03/28/2024): Mom eval. iin [facility] (Dr. 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 Suspect that MGNadeem also has a mitochondrial disorder based on her sx. Consult for Araceli with Dr. Lewis/ genetics at [facility] 09/28 - % risk cannot be estimated [...] back pain and migraines Has a medical Wo[employer] card Assessment & Plan (03/28/2024 8:44 AM [...] her headaches Eating disorder 01/22/2022 Overview (03/23/2024): 02/02- has lost 20+lb since last spring. 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 Therapist ~11/03-04/04 Janis Cotto [facility] (school-based), or [email or web address]. Didn't find therapy helpful. Last Assessment & Plan: Weight is up a little (2lb since May), which is good, and it sounds like she was doing really well on the program she was doing with [facility]. No longer in therapy, didn't find [...] done with school. I also suggested a practical nurse clinical coordinator that would be covered by insurance, but she isn't interested in this. Fibrocystic breast changes 01/22/2022 Bilateral breast cysts 01/09/2021 Overview (03/28/2024): Followed at [facility] in [place], since 05/2020 - first mass right breast approx 11per mom: Had another breast ultrasound ~Nov 2020, very good experience at [facility], found another mass, likely cyst, plan to [...] rhinitis 08/18/2017 Overview (03/23/2024): Has seen Dr. Cruz/Financial Systems Director. Has been on flonase and loratadine. Possible [...] intervention , Patient to reach out to [facility] team as needed, and Patient to engage in OP therapy Assessment & Plan (03/28/2024 8:36 AM EDT): consulted today for connection to OP therapy services Encounters Date Type Department Care Team Description 03/15/2025 3:00 PM EDT Office Visit [facility] [address] [place] [phone] Persistent cough (Primary Dx) 03/15/2025 Travel 03/13/2025 3:00 PM EDT [facility] [address] [address] Gurwinder Rose MD H/O severe allergy (Primary Dx); Elevated blood pressure reading in office without diagnosis of hypertension; H/O abdominal pain 03/13/[address] [address] Cherelle Garcia, DO No Show 03/13/2025 Travel 03/11/[address] [address] Yolanda Alberts MD Chart prep 03/08/2025 Orders Only [address] [address] Yolanda Alberts MD Anaphylaxis, subsequent encounter (Primary Dx) 03/07/[address] [address] Yolanda Alberts MD Care Coordination 02/14/[address] [address] Yolanda Alberts MD RECALL 01/07/[address] [address] Yolanda Alberts MD Results 12/28/2024 4:00 PM EST Office Visit [address] [address] Yolanda Alberts MD Chronic idiopathic constipation (Primary Dx); Dysmenorrhea; Dietary counseling; Exercise counseling; Overweight; 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[facility]) 12/28/2024 Travel 12/17/2024 Patient Outreach [address] [address] Yolanda Alberts MD Pre-visit Planning (Unable to complete screening) from Last 3 Months Immunizations Name Administration [...] Mass Index 30.95 03/15/2025 3:08 PM EDT Plan of Treatment Upcoming Encounters Date Type Department Care Team (Late st Contact Info) Description 05/20/2025 2:30 PM EDT Procedure Visit [facility] [address] [place] [address] Yolanda Alberts MD [address] [place] [address] Health Maintenance Due Date Last Done Comments Chlamydia and Gonorrhea Screening 2004 HIV Screening 2004 Lipid Panel 2004 Hepatitis C Screening 2022 COVID-19 Vaccine ( season) 2024 08/31/2022, 01/22/2022 Influenza Vaccine (#1) 2024 2, 01/22/2022, 09/30/2020, Additional history exists Pap Smear 2025 Alcohol/Substance Use Screening 03/26/2025 03/26/2024 Depression Screening 03/26/2025 03/26/2024, 03/26/20 24 SDOH Screening 03/26/2025 03/26/2024 Family Planning (PISQ) 01/02/2026 01/02/2025 Tobacco Screening 03/15/2026 03/15/2025 DTaP/Tdap/Td Vaccines (7 - Td or Tdap) [...] Name Priority Date/Time Associated Diagnosis Comments POCT RAPID STREP A Routine 03/15/2025 3: 31 PM EDT Persistent cough POCT RAPID COVID ANTIGEN Routine 03/15/2025 3:31 PM EDT Persistent cough POCT INFLUENZA A (ID NOW RAPID MOLECULAR) Routine 03/15/2025 3:31 PM EDT Persistent cough POCT INFLUENZA B (ID NOW RAPID MOLECULAR) Routine 03/15/2025 3:31 PM EDT Persistent cough US PELVIS TRANSVAGINAL Routine 01/25/2025 9:53 AM EDT Dysmenorrhea PROLACTIN, DILUTION STUDY Routine 01/03/2025 2:39 PM EST Dysmenorrhea LH Routine 01/03/2025 2:39 PM EST Dysmenorrhea FSH Routine 01/03/2025 2:39 PM EST Dysmenorrhea TSH W/REFLEX TO FT4 Routine 01/03/2025 2 :39 PM EST Dysmenorrhea XR KUB AND UPRIGHT 2 VIEWS Routine 01/03/2025 2:17 PM EST Chronic idiopathic constipation from Last 3 Months Results * Influenza B (ID NOW Rapid Molecular) (03/15/2025 3:31 PM EDT) Influenza B Negative Negative, Indeterminate [facility] Swab 03/15/2025 3:31 PM EDT [facility] DOPE FIRER POINT OF CARE TEST ENTER/EDIT ORDERABLES Final Result [facility] [address] [place] [address] [phone] * Influenza A (ID NOW Rapid Molecular) (03/15/2025 3:31 PM EDT) [facility] Influenza A Negative Negative, Indeterminate [facility] Swab 03/15/2025 3:31 PM EDT [facility] DOPE FIRER POINT OF CARE TEST ENTER/EDIT ORDERABLES Final Result [facility] [address] [place] [address] [phone] * POCT Rapid COVID Ag (03/15/2025 3:31 PM EDT) [facility] Rapid COVID Ag Negative Swab 03/15/2025 3:31 PM EDT [facility] DOPE FIRER POINT OF CARE TEST ENTER/EDIT ORDERABLES Final Result * POCT rapid strep A manually resulted (03/15/2025 3:31 PM EDT) [facility] Rapid Strep A Screen Negative Negative, None Detected Swab 03/15/2025 3:31 PM EDT Result [facility] DOPE FIRER POINT OF CARE TEST ENTER/EDIT ORDERABLES Final Result * US Pelvis Transvaginal (01/25/2025 9:53 AM EDT) Anatomical Region Laterality Modality Pelvis Ultrasound 01/25/2025 9:53 AM EDT Narrative 01/25/2025 9:54 AM EDT ? [facility] ?[address] ?[place] [address] ? Ultrasound Report ? Signed ? Patient: Brayden,Caitlen ?MR#: [id number] ?? 08 ? : 2005 ?Acct:[id number] ? Age/Sex: 20 / F ?ADM Date: 03/13/25 ? Loc: HO.US ? Attending Dr: Yolanda Alberts MD ? Ordering Physician: Yolanda Alberts ?? Date of Service: 01/24/25 ?? Procedure(s): US pelvic and transvaginal ?? Accession Number(s): [id number] ? cc: Yolanda Alberts ? CLINICAL HISTORY: dysmenorrhea severe, evlauate for structural abnormality, endo? US pelvis transabdominal and transvaginal with color Doppler ? Comparison: None ? Findings: ?? Transabdominal scanning performed for overall anatomy. Transvaginal ?? scanning performed for additional detail. ? LMP: 1 week ago ? Retroverted uterus, normal size and echotexture, measuring 6.8 x 3.5 x 3.5 ?? cm. Incidental nabothian cysts. ?? Well defined endometrium, measuring 3.0 mm in thickness. Minimal fluid in ?? the endometrial and endocervical canal ? The right ovary measures, 3.2 x 2.1 x 2.5 cm. Normal sonographic ?? appearance right ovary. Normal color Doppler of the ovary. ?? The left ovary measures, 2.8 x 1.7 x 1.9 cm. Normal sonographic appearance ?? left ovary. Normal color Doppler of the ovary. ?? No adnexal masses or fluid collections. ?? Trace free fluid ? Impression: ?? 1. Retroverteduterus. ?? 2. Normal thickness endometrium. Minimal fluid in the endometrial and ?? endocervical canal. ?? 3. Normal ovaries/adnexa ? This document has been electronically signed by: Meek Leigh MD on ?? 01/25/2025 09:53:29 ? Dictated By: ?Meek Leigh MD ? Signed By: ?<Electronically signed by Meek Leigh MD in OV> ?01/25/25 0954 ? DD/ 0953 ? TD/TT: 01/25/25 0953 ? Scalemaker: ? Procedure Note Zonia James - 01/25/[address] [address] Ultrasound Report Signed Patient: Debbie OwenMckaylaR#: [id number] 08 : 2005Acct:[id number] Age/Sex: 20 / FADM Date: 01/24/25 Loc: HO.US Attending Dr: Yolanda Alberts MD Ordering Physician: Yolanda Alberts Date of Service: 01/24/25 Procedure(s): US pelvic and transvaginal Accession Number(s): [id number] cc: Yolanda Alberst CLINICAL HISTORY: dysmenorrhea severe, evlauate for structuralabnormality, endo? US pelvis transabdominal and transvaginal with color Doppler Comparison: None Findings: Transabdominal scanning performed for overall anatomy. Transvaginal scanning performed for additional detail. LMP: 1 week ago Retroverted uterus, normal size and echotexture, measuring 6.8 x 3.5 x 3.5 cm. Incidental nabothian cysts. Well defined endometrium, measuring 3.0 mm in thickness. Minimal fluid in the endometrial and endocervical canal The right ovary measures, 3.2 x 2.1 x 2.5 cm. Normal sonographic appearance right ovary. Normal color Doppler of the ovary. The left ovary measures, 2.8 x 1.7 x 1.9 cm. Normal sonographic appearance left ovary. Normal color Doppler of the ovary. No adnexal masses or fluid collections. Trace free fluid Impression: 1. Retroverteduterus. 2. Normal thickness endometrium. Minimal fluid in the endometrial and endocervical canal. 3. Normal ovaries/adnexa This document has been electronically signed by: Meek Leigh MD on 01/25/2025 09:53:29 Dictated By: Meek Leigh MD Signed By: <Electronically signed by Meek Leigh MD in OV> 01/25/25 0954 DD/ 0953 TD/TT: 01/25/25 0953 Scalemaker: Yolanda Alberts MD [facility] US PROCEDURES Final Result * Prolactin, Dilution Study (01/03/2025 2:39 PM EST) Prolactin, Undiluted 8.0 ng/mL [facility] Comment:Verified by repeat a nalysis. Prolactin, Diluted SEE NOTE ng/mL [facility] Comment:Result confirmed by 1:100 dilution. No high dosehook effect detected. Reference Range Females Non- 3.0-30.0 10.0-209.0 Postmenopausal 2.0-20.0Prolactin dilution studies are done to determine ifthere is a high-dose hook effect (i.e. a non-linearassay response due to a very high concentration ofProlactin). This is reported to occur at Prolactinconcentrations at or above 30,000 ng/mL.This test is not recommended for identifyingmacroprolactin. [facility], Prolactin, Total and Monomeric is therecommended test (Order code [id number]).THIS TEST WAS PERFORMED AT:[facility] [address] [id number] HYLTON MD Blood Venous blood specimen / Unknown 01/03/2025 2:39 PM EST 01/03/2025 4:13 PM EST Yolanda Alberts MD LAB BLOOD ORDERABLES Final Res ult Performing Organization Address City/[facility]/ZIP Co de Phone Number [facility] [address] [place] [phone] * TSH W/Reflex to FT4 (01/03/2025 2:39 PM EST) TSH reflex Free T4 0.65 0.32 - 4.0 uIU/mL [facility] Blood Venous blood specimen / Unknown 01/03/2025 2:39 PM EST 01/03/2025 4:13 PM EST Yolanda Alberts MD LAB BLOOD ORDERABLES Final Res ult Performing Organization Address [facility]/ZIP Co de Phone Number [facility] [address] [place] [phone] * LH (01/03/2025 2:39 PM EST) Lutenizing Hormone 10.1 mIU/mL [facility] Comment:Reference Range Foll icular Phase 1.9-12.5 Mid-Cycle Peak 8.7-76.3 Luteal Phase 0.5-16.9 Postmenopausal 10.0-54.7THIS TEST WAS PERFORMED AT:[facility] [address] [phone] HYLTON MD Blood Venous blood specimen / Unknown 01/03/2025 2:39 PM EST 01/03/2025 4:13 PM EST Yolanda Alberts MD LAB BLOOD ORDERABLES Final Res ult Performing Organization Address [facility] de Phone Number [facility] [address] [place] [phone] * FSH (01/03/2025 2:39 PM EST) Follicle Stimulating Hormone 3.4 mIU/mL [facility] Comment:Reference Range Foll icular Phase 2.5-10.2 Mid-cycle Peak 3.1-17.7 Luteal Phase 1.5- 9.1 Postmenopausal 23.0-116.3THIS TEST WAS PERFORMED AT:[facility] [address] [phone] HYLTON MD Blood Venous blood specimen / Unknown 01/03/2025 2:39 PM EST 01/03/2025 4:13 PM EST Yolanda Alberts MD LAB BLOOD ORDERABLES Final Res ult Performing Organization Address [facility] de Phone Number [facility] [address] [place] [address] [phone] * XR KUB and Upright 2 Views (01/03/2025 2:17 PM EST) Anatomical Region Laterality Modality Radiographic Babita ging 01/03/2025 2:17 PM EST Narrative 01/03/2025 2:45 PM EST ?[place] [facility] ?[address] ?[place] [address] ?XRay Report ? Signed ? Patient: Brayden,Caitlen ?MR#: [id number] ?? 08 ? : 2005 ?Acct:[id number] ? Age/Sex: 19 / F ?ADM Date: 01/03/25 ? Loc: HO.HHCX ? Attending Dr: Yolanda Alberts MD ? Ordering Physician: Yolanda Alberts ?? Date of Service: 01/03/25 ?? Procedure(s): XR KUB ?? Accession Number(s): [id number] ? cc: Yolanda Alberts ? EXAMINATION: ?? [...] DD/ 1417 ? TD/TT: 01/03/25 1430 ? Scalemaker: ? Procedure Note Erika, Zonia - 01/03/[address] [address] XRay Report Signed Patient: Debbie OwennMR#: [id number] 08 : 2005Acct:[id number] Age/Sex: 19 / FADM Date: 01/03/25 Loc: HO.HHCX Attending Dr: Yolanda Alberts MD Ordering Physician: Yolanda Alberts Date of Service: 01/03/25 Procedure(s): XR KUB Accession Number(s): [id number] cc: Yolanda Alberts EXAMINATION: XR ABDOMEN KUB [...] 01/03/25 1441 DD/ 1417 TD/TT: 01/03/25 1430 Scalemaker: Yolanda Alberts MD IMG XR PROCEDURES Final Result from Last 3 Months Insurance [facility] , [address] [place] [address] Care Teams Sports Intern Relationship Specialty Start Date End Date Yolanda Alberts MD [address] [place] [address] PCP - General Family Medicine 03/23/24
--- OUTSIDE RECORDS SUMMARY | 2025-03-15 15:51 | XMS_ITS | Encounter Summary ---
Author Organization [facility] Address [address] [place] [phone] Phone Care Team Providers Care Supervisor [employer]ar [employer] Name Role Phone Gladis Jones MD Primary Care Provider [phone] Encounter Details Date Type Department Care Team (Late st Contact Info) Description 09/16/2014 Documentation [facility] Family Medicine [address] [place], [place] [phone] Family Medicine, Physician [address] [place] [address] Social History Tobacco Use Types Packs/Day Years [...] filedocumented in this encounter Care Teams Supervisor [employer]ar [employer] Relationship Specialty Start Date End Date Gladis Jones MD [address] [place] [address] PCP - General Pediatrics 05/14/18 03/14/24 documented as of this encounter
--- OUTSIDE RECORDS SUMMARY | 2025-03-15 15:51 | XMS_ITS | Encounter Summary ---
Author Organization [facility] Address [address] [facility] 7 [place] [address] Care Team Providers Care Corporate Accounting Manager Name Role Phone Yolanda Alberts MD Primary Care Provider Reason for Visit * Reason Onset Date Comments Chart prep 03/11/2025 Encounter Details Date Type Department Care Team ([facility] st Contact Info) Description 03/11/[address] [facility] [address] [place], [place] [phone] Yolanda Alberts MD [address] [place], [place] [phone] Chart prep Social History Tobacco Use Types Packs/Day Years [...] encounter Miscellaneous Notes * Telephone Encounter - Rola Benjamin [place] - 03/11/2025 9:17 AM EDT Chart Prep Labs: done Images: done Referrals: not applicable Vaccines due: Covid Screenings: STI screening Overdue care gaps: SDOH and PHQ-9 documented in this encounter Plan of Treatment Upcoming Encounters Date Type Department Care Team (Late st Contact Info) Description 05/20/2025 2:30 PM EDT Procedure Visit [facility] [address] [place] [address] Yolanda Alberts MD [address] [place] [address] documented as of this encounter Visit Diagnoses Not on filedocumented in this encounter Additional Health Concerns Assessment Noted Time PHQ-9 Depression Total Score: 0 03/26/20 1:08 PM EDT documented as of this encounter Care Teams Corporate Accounting Manager Relationship Specialty Start Date End Date Yolanda Alberts MD [address] [place], [place] [phone] PCP - General Family Medicine 03/23/24 documented as of this encounter
--- OUTSIDE RECORDS SUMMARY | 2025-03-15 15:51 | XMS_ITS | Encounter Summary ---
Author Organization [facility] Address [address] [place] [address] Phone Care Team Providers Care Rn Call Center Name Role Phone Gladis Jones MD Primary Care Provider [phone] Encounter Details Date Type Department Care Team (Late st Contact Info) Description 02/07/2015 Documentation [facility] Family Medicine [address] [place], [place] [phone] Family Medicine, Physician [address] [place] [address] Social History Tobacco Use Types Packs/Day Years [...] filedocumented in this encounter Care Teams Rn Call Center Relationship Specialty Start Date End Date Gladis Jones MD [address] [place] [address] PCP - General Pediatrics 05/14/18 03/14/24 documented as of this encounter
--- OUTSIDE RECORDS SUMMARY | 2025-03-15 15:51 | XMS_ITS | Encounter Summary ---
Author Organization [facility] Address [address] [place] [address] Phone Care Team Providers Care Loom Fixer Name Role Phone Gladis Jones MD Primary Care Provider [phone] Encounter Details Date Type Department Care Team (Late st Contact Info) Description 06/30/2017 Conversion Encounter [facility] [address] [place] [address] Social History Tobacco Use Types Packs/Day Years [...] on filedocumented in this encounter Care Teams Loom Fixer Relationship Specialty Start Date End Date Gladis Jones MD [address] [place] [address] PCP - General Pediatrics 05/14/18 03/14/24 documented as of this encounter
--- OUTSIDE RECORDS SUMMARY | 2025-03-15 15:51 | XMS_ITS | Encounter Summary ---
Author Organization [facility] Address [address] [place] [address] Phone Care Team Providers Care Newspaper Delivery Driver Name Role Phone Gladis Jones MD Primary Care Provider [phone] Reason for Visit * Reason Comments Med Refill Encounter Details Date Type Department Care Team (Late st Contact Info) Description 08/03/2020 Refill [facility] [address] [place] [address] Gladis Jones MD [address] [place] [address] Encounter for initial prescription of contraceptive pills [...] May.She is faxing the orders back to [facility] so MD can see the different [...] AM EDT I called the pharmacist at [facility] She states what was sent [...] pills documented in this encounter Care Teams Newspaper Delivery Driver Relationship Specialty Start Date End Date Gladis Jones MD [address] [place] [phone] PCP - General Pediatrics 05/14/18 03/14/24 documented as of this encounter
--- OUTSIDE RECORDS SUMMARY | 2025-03-15 15:51 | XMS_ITS | Clinical Summary ---
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 Therapist ~11/03-04/04 Nikunj Cotto [facility] (school-based), or [email or web address]. Didn't find therapy helpful. Assessment & Plan [...] done with school. I also suggested a exercise physiologist certified that would be covered by insurance, but she isn't interested in this. Assessment & Plan (03/05/2022 12:46 PM EDT): Weight down a few pounds today, and orthostatics are borderline. Her weight loss now is likely confounded by having the Flu a couple weeks ago. I recommended to call Anjana about outpatient management, but she isn't interested at this time. She plans to see Form Carpenter, Carly Jefferson, for an eating plan and [...] Overview (01/12/2022): Followed at [facility] in [place], since 05/2020 - first mass right breast approx 11per mom: Had another breast ultrasound ~Nov 2020, very good experience at [facility], found another mass, likely cyst, plan to [...] rhinitis 08/18/2017 Overview (08/18/2017): Has seen Dr. Cruz/Data Governance Consultant. Has been on flonase and loratadine. Possible food allergies also. Assessment & Plan (11/29/2019 10:32 AM EST): Continue prn meds. Assessment & Plan (04/26/2018 8:59 AM EDT): Use shanika & sheila Family history of disorder of metabolism 015 Overview (08/31/2022): Mom eval. iin [facility] (Dr. 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 Suspect that MGM also has a mitochondrial disorder based on her sx. Consult for Araceli with Dr. Lewis/ genetics at [facility] [...] 01/09/2021 Overview (11/27/2018): Diag with ADHD by [facility]. Trial of adderall xr started 2011 [...] ry of *Thrombophilia, Family history of *Sudden /[place] under 55, No family history of Developmental [...] Completed 06/09/2020, 016 Procedures * Due to [place] [employer] law, this organization might not be sharing sensitive test results. Procedure Name Priority Date/Time Associated Diagnosis Comments CHLAMYDIA AND GONORRHEA, AMPLIFIED Routine 03/05/2022 12:15 PM EDT Screening for chlamydial disease from Last 3 Months or Most Recently Relevant to Health Maintenance Results * Due to [place] [employer] law, this organization might not be sharing sensitive test results. * Chlamydia and Gonorrhoea, Amplified (Urine) (03/05/2022 12:15 PM EDT) Chlamydia Trachomatis, DNA Probe NEGATIVE (NEG) [facility] Comment: No Chlamydia Trachomatis RNA detected in this patient's sample ? (REFERENCE RANGE/NORMAL VALUE: NOT DETECTED) ? Note: This test uses consulting technical director- mediated amplification method to detect rRNA from C. Trachomatis URINE GC AMP PROBE NEGATIVE (NEG) [facility] Comment: No Neisseria Gonorrhoeae RNA detected in this patient's sample ? (REFERENCE RANGE/NORMAL VALUE: NOT DETECTED) ? NOTE: This test uses consulting technical director-mediated amplification method to detect rRNA from N.Gonorrhoeae. [...] without risk of sexual abuse. Consult the [facility] if needed. Contact phone number . Therapeutic failure or success cannot be determined with the Aptima Combo2 assay since nucleic acid may persist following appropriate antimicrobial therapy. The Centers for Disease Control and Prevention (CDC) recommends confirmatory retesting using culture or a different nucleic acid amplification test when positive results occur, if indicated. Testing performed or reported by [facility], a Service of [facility], [address] [place] [address] Dylan Sharma MD, Director Of Strategic Communications [facility]# [id number] Urine (Urine, Random (not clean void)) 03/05/2022 12:15 PM EDT 03/05/2022 10:14 PM EDT us Gladis Jones MD LAB MICROBIOLOGY - GENERAL OR DERABLES Final Result [facility] from Last 3 Months or Most Recently Relevant to Health Maintenance Insurance [facility] NON PCC [facility]
--- OUTSIDE RECORDS SUMMARY | 2025-03-15 15:51 | XMS_ITS | Encounter Summary ---
Author Organization [employer] Address [address] [place] [address] [place] [address] Care Team Providers Care Librarian Helper Name Role Phone Yolanda Alberts MD Primary Care Provider [phone] Reason for Referral * Consultation (STAT) - Authorized Specialty Diagnoses / Procedures Referred By Contac t Referred To Contact Allergy Diagnoses Anaphylaxis, subsequent encounter Yolanda Alberts MD [address] [place] [address] Phone: tel: fax: [facility] [address] [place] [address] Phone: tel: fax: Referral ID Status Reason Start Date Expiration Date Visits Requested Visits Authorized [id number] Authorized Specialty Services Required 03/08/2025 03/08/2026 1 1 Encounter Details Date Type Department Care Team ([facility] st Contact Info) Description 03/08/2025 Orders Only [facility] [address] [place], [place] [phone] Yolanda Alberts MD [address], [place] [phone] Anaphylaxis, subsequent encounter (Primary Dx) Social History Tobacco Use Types [...] Description 05/20/2025 2:30 PM EDT Procedure Visit [facility] [address] [place] [address] Yolanda Alberts MD [address] [place] [address] Scheduled Referrals Name Type Priority Associated Diagnoses Orde r Schedule Referral to Allergy Outpatient Referral STAT Anaphylaxis, subsequent encounter Expected: 03/08/2025 (Approximate), Expires: 03/08/2026 documented as of this encounter Visit Diagnoses Diagnosis Anaphylaxis, subsequent encounter- Primary documented in this encounter Additional Health Concerns Assessment Noted Time PHQ-9 Depression Total Score: 0 03/26/20 24 1:08 PM EDT documented as of this encounter Care Teams Librarian Helper Relationship Specialty Start Date End Date Yolanda Alberts MD [address] [place] [address] PCP - General Family Medicine 03/23/24 documented as of this encounter
== END 2025-03-15 15:47 | disposition home or self-care (01) ==
LOC: HO.HHCX 15:46
PROVIDERS: Visit Provider Registered Nurse
DX: R05.3 Chronic cough (principal)
CPT/HCPCS: 71046

== ENCOUNTER → 2025-03-15 15:47 | Outpatient (BNV) | payer OTHER, SELFPAY | PROVIDERS: Visit Provider Radiology Diagnostic Radiology | DX: R05.3 Chronic cough (principal) | CPT/HCPCS: 71046 ==